=== PATIENT | male | born 1965 | race African-American/Black ===

== ENCOUNTER 2021-03-20 18:23 | Inpatient (IN) | payer MEDICAID ==
[~2021-03-20] VITALS: Ht 175.3 cm; Wt 65.0 kg
[2021-03-20] MEDS ORDERED: HYDROcodone/acetaminophen 10/325mg tab PO ONE (19:10)
[2021-03-20] MEDS ORDERED: METO-395 PO (19:14)
[2021-03-20] MEDS ORDERED: CLOP75TA15 PO (19:14)
[2021-03-20] MEDS ORDERED: ATOR40TA PO (19:15)
[2021-03-20 19:58] LABS: ALANINE AMINOTRANSFERASE 17 U/L (12-78); ALBUMIN/GLOBULIN RATIO 1.1 (1.1-1.5); ALKALINE PHOSPHATASE 69 IU/L (46-116); ANION GAP 14 (8-16); ASPARTATE AMINO TRANSFERASE 18 U/L (10-37); BILIRUBIN,TOTAL 0.8 MG/DL (0.1-1.0); BLOOD UREA NITROGEN 12 MG/DL (7-18); BUN/CREATININE RATIO 13.3 (5.4-32.0); CALCIUM 8.6 MG/DL (8.5-10.1); CHLORIDE 106 MMOL/L (99-107); GLUCOSE 99 MG/DL (70-104); POTASSIUM 4.2 MMOL/L (3.5-5.1); SODIUM 141 MMOL/L (135-145); TOTAL CARBON DIOXIDE 21.2 MMOL/L (24-32); TOTAL PROTEIN 7.7 G/DL (6.4-8.2); eGFR 88 ML/MIN
[2021-03-20 20:05] LABS: ETHANOL 0.099 GM/DL (0.0-0.010); TROPONIN I < 0.04 NG/ML (0.0-0.05)
[2021-03-20 20:23] LABS: BASOPHILS # (AUTO) 0.1 X10'3 (0-0.2); BASOPHILS % (AUTO) 1.2 % (0-1); EOSINOPHILS % (AUTO) 0.1 % (0-6); HEMATOCRIT 42.5 % (42.0-52.0); HEMOGLOBIN 14.3 g/dl (14.0-17.9); LYMPHOCYTES # (AUTO) 1.1 X10'3 (1.1-4.8); LYMPHOCYTES % (AUTO) 20.7 % (21-51); MEAN CORPUSCULAR HEMOGLOBIN 30.1 PG (27.0-31.0); MEAN CORPUSCULAR HGB CONC 33.6 g/dL (33.0-36.5); MEAN CORPUSCULAR VOLUME 89.7 FL (78-98); MEAN PLATELET VOLUME 7.2 FL (7.4-10.4); MONOCYTES # (AUTO) 0.4 X10'3 (0-0.9); MONOCYTES % (AUTO) 7.2 % (2-12); NEUTROPHILS # (AUTO) 3.7 X10'3 (1.8-7.7); NEUTROPHILS % (AUTO) 70.8 % (42-75); PLATELET COUNT 277 X10'3 (140-440); RED BLOOD COUNT 4.74 X10'6 (4.70-6.10); RED CELL DISTRIBUTION WIDTH 14.6 % (11.5-14.5); WHITE BLOOD COUNT 5.2 X10'3 (4.5-11.0)
[2021-03-20] MEDS ORDERED: temazepam 15mg capsule PO PRN (21:00)
[2021-03-20] MEDS ORDERED: acetaminophen 325mg tablet PO PRN ×2 (21:15)
[2021-03-20] MEDS ORDERED: acetaminophen 650mg rectal suppository RC PRN (21:15)
[2021-03-20] MEDS ORDERED: bisacodyl 10mg suppository rectal RC PRN (21:15)
[2021-03-20] MEDS ORDERED: diphenhydrAMINE 25mg capsule PO PRN (21:15)
[2021-03-20] MEDS ORDERED: HYDROmorphone inj. 0.5 MG/0.5 ML DISP.SYRIN IV PRN (21:15)
[2021-03-20] MEDS ORDERED: ondansetron/PF 4mg/2ml inj IV PRN (21:15)
[2021-03-20] MEDS ORDERED: morphine 2 MG/ML inj. syringe IV PRN (21:15)
[2021-03-20] MEDS ORDERED: mag hydrox/Alum hydrox/simeth 30ml oral suspension PO PRN (21:15)
[2021-03-20] MEDS ORDERED: diphenhydrAMINE 50 mg/ml inj IV PRN (21:15)
[2021-03-20 21:48] LABS: HEMOGLOBIN A1C 5.8 % (4.5-6.2)
[2021-03-20 22:04] LABS: D-DIMER 0.48 MG/L FEU (0-0.50)
--- NOTE | 2021-03-20 22:26 | NUR ---
Pt is refusing to go to CT unless he gets pain meds. I talked to his nurse, only asprin is ordered for pain.
[2021-03-20 22:27] LABS: CREATINE KINASE 182 U/L (39-308); LIPASE < 50 U/L (73-393); MAGNESIUM 1.9 MG/DL (1.5-2.4); PHOSPHORUS 4.9 MG/DL (2.3-4.5)
[2021-03-20] MEDS: morphine 2 MG/ML inj. syringe IV PRN (22:28)
--- NOTE | 2021-03-20 22:42 | NUR ---
PT. TO CT
--- NOTE | 2021-03-20 22:57 | NUR ---
PT BACK FROM CT, PER SHOT CORE DRILL OPERATOR PT WAS DIFFICULT TO SCAN, INITIALLY REFUSED TO LAY SUPINE FOR EXAM, REQUESTED SHE LOOK AT HIS INJURED LEG, WHEN SHE WAS UNABLE TO SEE THE DIFFERENCE HE MOVED ONTO HIS BACK AND LAID FLAT WITHOUT ISSUE.
[2021-03-20] MEDS: dextrose 5%-1/2 normal saline 1,000 ML IV SCH (23:50)
--- NOTE | 2021-03-21 00:30 | NUR ---
PT REFUSES 6HR EKG, STATES HE IS TOO COLD, TELLS THIS NURSE TO "GET ME A CELL PHONE SILVERING APPLICATOR" RN INFORMES PT THERE IS NOT ONE AVAILABLE FOR HIS TYPE OF PHONE "THEN TAKE ME TO MY ROOM, I WANT A TV" PT EDUCATED ON ROOM SITUATION, "THEN GET OUT". RN LEFT ROOM NOTIFIED ROCHELLE PLATT WHO WILL ASSIST WITH CARE.
[2021-03-21 01:37] LABS: BASOPHILS # (AUTO) 0.1 X10'3 (0-0.2); BASOPHILS % (AUTO) 1.2 % (0-1); EOSINOPHILS % (AUTO) 0.7 % (0-6); HEMATOCRIT 37.2 % (42.0-52.0); HEMOGLOBIN 12.9 g/dl (14.0-17.9); LYMPHOCYTES # (AUTO) 1.5 X10'3 (1.1-4.8); LYMPHOCYTES % (AUTO) 25.8 % (21-51); MEAN CORPUSCULAR HEMOGLOBIN 30.6 PG (27.0-31.0); MEAN CORPUSCULAR HGB CONC 34.7 g/dL (33.0-36.5); MEAN CORPUSCULAR VOLUME 88.2 FL (78-98); MEAN PLATELET VOLUME 7.1 FL (7.4-10.4); MONOCYTES # (AUTO) 0.5 X10'3 (0-0.9); MONOCYTES % (AUTO) 9.4 % (2-12); NEUTROPHILS # (AUTO) 3.7 X10'3 (1.8-7.7); NEUTROPHILS % (AUTO) 62.9 % (42-75); PLATELET COUNT 264 X10'3 (140-440); RED BLOOD COUNT 4.22 X10'6 (4.70-6.10); RED CELL DISTRIBUTION WIDTH 14.4 % (11.5-14.5); WHITE BLOOD COUNT 5.8 X10'3 (4.5-11.0)
[2021-03-21 01:46] LABS: ALANINE AMINOTRANSFERASE 20 U/L (12-78); ALBUMIN 3.7 G/DL (3.4-5.0); ALBUMIN/GLOBULIN RATIO 1.1 (1.1-1.5); ALKALINE PHOSPHATASE 60 IU/L (46-116); ANION GAP 12 (8-16); ASPARTATE AMINO TRANSFERASE 25 U/L (10-37); BILIRUBIN,TOTAL 0.6 MG/DL (0.1-1.0); BLOOD UREA NITROGEN 13 MG/DL (7-18); CALCIUM 8.1 MG/DL (8.5-10.1); CHLORIDE 107 MMOL/L (99-107); CREATININE 0.81 MG/DL (0.60-1.10); GLUCOSE 99 MG/DL (70-104); POTASSIUM 3.9 MMOL/L (3.5-5.1); SODIUM 143 MMOL/L (135-145); TOTAL CARBON DIOXIDE 24.4 MMOL/L (24-32); TOTAL PROTEIN 7.1 G/DL (6.4-8.2); eGFR > 90 ML/MIN
[2021-03-21 01:49] LABS: CHOL/HDL RATIO 2.2 (0.00-4.99); CHOLESTEROL 139 MG/DL (0-200); HDL CHOLESTEROL 63 MG/DL (35-60); LDL CHOLESTEROL 59 MG/DL (50-100); TRIGLYCERIDES 94 MG/DL (20-135)
[2021-03-21] MEDS: morphine 2 MG/ML inj. syringe IV PRN ×5 (03:10→22:47)
[2021-03-21] MEDS: dextrose 5%-1/2 normal saline 1,000 ML IV SCH ×2 (07:15→18:02)
[2021-03-21] MEDS: metoprolol succinate 25mg (24-HOUR) SR. Tablet PO SCH ×2 (08:00→08:41)
[2021-03-21] MEDS ORDERED: lisinopril 10 MG tablet PO SCH (08:00)
[2021-03-21] MEDS: aspirin 325mg tablet, delayed-release (Ecotrin) PO SCH (08:38)
[2021-03-21] MEDS: atorvastatin 20mg tablet PO SCH (08:38)
[2021-03-21] MEDS: heparin, porcine 5000 units/ml vial SQ SCH ×2 (08:39→20:56)
[2021-03-21] MEDS: clopidogrel 75mg tablet PO SCH (08:42)
[2021-03-21] MEDS: pantoprazole 40mg Tablet.DR PO SCH (08:43)
[2021-03-21] MEDS: docusate sod 100mg capsule PO SCH ×2 (08:43→20:56)
[2021-03-21 09:50] VITALS: BP 153/77
--- NOTE | 2021-03-21 09:50 | NUR ---
Pt arrived from ED, A&Ox4. BLL, SRx2, CL within reach, non skid socks on. Tele monitor on, first set of vitals complete, mrsa collected. Dr Quiles at bedside.
[2021-03-21] MEDS ORDERED: nitroGLYCERIN 0.4mg SUBLingual tab SL PRN (10:05)
[2021-03-21] MEDS ORDERED: regadenoson 0.4mg/5ml syringe IV ONE (10:05)
[2021-03-21] MEDS ORDERED: metoprolol tartrate 1mg/ml inj IV PRN (10:05)
[2021-03-21] MEDS ORDERED: aminophylline 250mg/10ml inj. IV PRN (10:05)
[2021-03-21 11:00] VITALS: BP 132/80
[2021-03-21] MEDS ORDERED: LISI20TA28 PO (11:11)
[2021-03-21] MEDS ORDERED: lisinopril 10 MG tablet PO ONE (11:20)
--- NOTE | 2021-03-21 12:14 | NUR ---
Pt c/o waiting for an hour for pain medication. I went into pts room and informed him I was having to see another pt and I will look into what pain medication I can prescribe him. Per md orders, I am to administer PO pain meds prior to administering IV meds if PO was ineffective. I went back into pts room after attending to another pts needs and offered him a [place] 10/325 PO because pt said his pain was a 10. Pt refused to take PO, I explained I have to administer PO meds first. He didn't care, continued to raise his voice at me, and said "I didn't come in here to get high, norco doesn't work for me, I want morphine". Once again I explained I can give a PO med, and if it doesn't work, then I can give him morphine. He then told me he doesn't want me to be his nurse, and he wants to talk to my medical billing supervisor. I informed LC Vickesr Charge. She will talk to him.
[2021-03-21 15:00] VITALS: BP 131/68
[2021-03-21 18:00] VITALS: BP 105/64
--- NOTE | 2021-03-21 18:37 | NUR ---
Problems reprioritized. Patient report given, questions answered & plan of care reviewed with LC Calvillo. Pt sitting up in bed watching tv comfortably. No signs of distress noted. All pt needs met at this time.
--- NOTE | 2021-03-21 18:43 | NUR ---
Patient in room PCU 3024. I have received report from Belkis PLATT and had the opportunity to ask questions and assume patient care. Pt had finished dinner and was laying in bed watching tv. No signs of distress, will continue to monitor.
[2021-03-21] MEDS: HYDROcodone/acetaminophen 10/325mg tab PO PRN (21:02)
[2021-03-21 22:00] VITALS: BP 121/68
[2021-03-22] VITALS (18 sets, daily range): BP systolic 97–133; BP diastolic 51–75
[2021-03-22] MEDS: dextrose 5%-1/2 normal saline 1,000 ML IV SCH ×3 (03:31→21:37)
[2021-03-22] MEDS: morphine 2 MG/ML inj. syringe IV PRN ×4 (04:13→20:55)
[2021-03-22 06:16] LABS: BASOPHILS % (AUTO) 0.8 % (0-1); EOSINOPHILS # (AUTO) 0.1 X10'3 (0-0.9); EOSINOPHILS % (AUTO) 1.8 % (0-6); HEMATOCRIT 30.4 % (42.0-52.0); HEMOGLOBIN 10.6 g/dl (14.0-17.9); LYMPHOCYTES # (AUTO) 1.1 X10'3 (1.1-4.8); LYMPHOCYTES % (AUTO) 23.1 % (21-51); MEAN CORPUSCULAR HEMOGLOBIN 30.8 PG (27.0-31.0); MEAN CORPUSCULAR HGB CONC 34.8 g/dL (33.0-36.5); MEAN CORPUSCULAR VOLUME 88.4 FL (78-98); MEAN PLATELET VOLUME 7.3 FL (7.4-10.4); MONOCYTES # (AUTO) 0.6 X10'3 (0-0.9); MONOCYTES % (AUTO) 13.5 % (2-12); NEUTROPHILS # (AUTO) 2.8 X10'3 (1.8-7.7); NEUTROPHILS % (AUTO) 60.8 % (42-75); PLATELET COUNT 242 X10'3 (140-440); RED BLOOD COUNT 3.44 X10'6 (4.70-6.10); RED CELL DISTRIBUTION WIDTH 14.2 % (11.5-14.5); WHITE BLOOD COUNT 4.6 X10'3 (4.5-11.0)
--- NOTE | 2021-03-22 06:23 | NUR ---
Problems reprioritized. Patient report given, questions answered & plan of care reviewed with Belkis PLATT and Brea PLATT.
[2021-03-22] MEDS: HYDROcodone/acetaminophen 10/325mg tab PO PRN ×3 (06:30→19:31)
--- NOTE | 2021-03-22 06:33 | NUR ---
Patient in room PCU 3024. I have received report from LC Calvillo and had the opportunity to ask questions and assume patient care.
--- NOTE | 2021-03-22 06:33 | NUR ---
Patient in room PCU 3024. I have received report from Rachel Calvillo and had the opportunity to ask questions and assume patient care.
[2021-03-22 06:44] LABS: ALANINE AMINOTRANSFERASE 18 U/L (12-78); ALKALINE PHOSPHATASE 57 IU/L (46-116); ANION GAP 8 (8-16); ASPARTATE AMINO TRANSFERASE 20 U/L (10-37); BILIRUBIN,TOTAL 0.4 MG/DL (0.1-1.0); BLOOD UREA NITROGEN 17 MG/DL (7-18); BUN/CREATININE RATIO 24.3 (5.4-32.0); CALCIUM 7.8 MG/DL (8.5-10.1); CHLORIDE 105 MMOL/L (99-107); GLUCOSE 102 MG/DL (70-104); POTASSIUM 3.7 MMOL/L (3.5-5.1); SODIUM 139 MMOL/L (135-145); TOTAL CARBON DIOXIDE 25.7 MMOL/L (24-32); TOTAL PROTEIN 5.9 G/DL (6.4-8.2); eGFR > 90 ML/MIN
[2021-03-22] MEDS: docusate sod 100mg capsule PO SCH ×2 (07:37→20:54)
[2021-03-22] MEDS: atorvastatin 20mg tablet PO SCH (07:37)
[2021-03-22] MEDS: pantoprazole 40mg Tablet.DR PO SCH (07:37)
--- NOTE | 2021-03-22 09:48 | NUR ---
Paged Dr Quiles PAGER ID: [phone] MESSAGE: Analia Mukesh Hicks U [id number] FYI Pt refusing to go to [facility] scan, he claims he's in too much pain. Thanks Belkis [phone]
[2021-03-22] MEDS ORDERED: iohexol 300mg/ml 100ml inj. ONE (13:08)
[2021-03-22] MEDS: lisinopril 20mg tablet PO SCH (13:29)
[2021-03-22] MEDS: clopidogrel 75mg tablet PO SCH (13:31)
[2021-03-22] MEDS: aspirin 325mg tablet, delayed-release (Ecotrin) PO SCH (13:31)
[2021-03-22] MEDS: heparin, porcine 5000 units/ml vial SQ SCH ×2 (13:32→20:54)
--- NOTE | 2021-03-22 15:52 | NUR ---
Paged Dr Quiles PAGER ID: [phone] MESSAGE: Mukesh Webber [id number] FYI Pt was given lunch, NPO sign was up. Dr Rosen unable to cath today. Thanks Belkis
--- NOTE | 2021-03-22 18:23 | NUR ---
Problems reprioritized. Patient report given, questions answered & plan of care reviewed with LC Leiva. Pt sitting up in bed eating dinner independently. All pt needs met at change of shift.
--- NOTE | 2021-03-22 18:41 | NUR ---
Patient in room PCU 3024. I have received report from Belkis PLATT and had the opportunity to ask questions and assume patient care.
[2021-03-23] MEDS: HYDROcodone/acetaminophen 10/325mg tab PO PRN ×5 (00:20→20:09)
[2021-03-23] MEDS: morphine 2 MG/ML inj. syringe IV PRN ×5 (01:55→23:08)
[2021-03-23 02:00] VITALS: BP 112/71
--- NOTE | 2021-03-23 06:36 | NUR ---
Problems reprioritized. Patient report given, questions answered & plan of care reviewed with Tayler PLATT.
--- NOTE | 2021-03-23 07:23 | NUR ---
notified. PAGER ID: [phone] MESSAGE: Re: Jordan Hicks. [id number]. Do you want to hold the clopidegrol, due to the CT results of potential growing hematoma? pt refused labs. Attempting to get them. thanks. Tayler. [phone].
[2021-03-23] MEDS: heparin, porcine 5000 units/ml vial SQ SCH ×2 (08:00→20:10)
[2021-03-23] MEDS: clopidogrel 75mg tablet PO SCH (08:00)
[2021-03-23] MEDS: aspirin 325mg tablet, delayed-release (Ecotrin) PO SCH (08:04)
[2021-03-23] MEDS: metoprolol succinate 25mg (24-HOUR) SR. Tablet PO SCH (08:04)
[2021-03-23] MEDS: atorvastatin 20mg tablet PO SCH (08:04)
[2021-03-23] MEDS: lisinopril 20mg tablet PO SCH (08:10)
[2021-03-23] MEDS: pantoprazole 40mg Tablet.DR PO SCH (08:12)
[2021-03-23] MEDS: docusate sod 100mg capsule PO SCH ×2 (08:12→20:10)
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
--- NOTE | 2021-03-23 08:31 | NUR ---
CLARIFICATION OF ABOVE PRIOR NOTE. DR NEWTON REQUESTED I COME WITH HER INTO PT ROOM. PT WAS STATING DURING HIS TIRADE THAT HE WANTED TO "SWITCH" DOCTORS
--- NOTE | 2021-03-23 08:45 | NUR ---
Dr. Quiles at bedside. Patient continously interupting and argumenative with nursing staff. Consistently, saying "I do not want you as my DR. I do not care about you. I want another doctor. You did not do anything for me yesterday." Attempted to educated patient upon plan of care but patient said "I dont want to hear it. You'll get in trouble if you give me wrong information. You could get sued man. Quit trying to tell me what's going on."
[2021-03-23] MEDS: dextrose 5%-1/2 normal saline 1,000 ML IV SCH ×2 (10:33→20:11)
[2021-03-23 10:34] LABS: BASOPHILS % (AUTO) 0.9 % (0-1); EOSINOPHILS # (AUTO) 0.1 X10'3 (0-0.9); EOSINOPHILS % (AUTO) 1.4 % (0-6); HEMATOCRIT 31.8 % (42.0-52.0); HEMOGLOBIN 10.8 g/dl (14.0-17.9); LYMPHOCYTES # (AUTO) 0.8 X10'3 (1.1-4.8); LYMPHOCYTES % (AUTO) 18.3 % (21-51); MEAN CORPUSCULAR HEMOGLOBIN 30.2 PG (27.0-31.0); MEAN CORPUSCULAR VOLUME 88.9 FL (78-98); MEAN PLATELET VOLUME 7.3 FL (7.4-10.4); MONOCYTES # (AUTO) 0.5 X10'3 (0-0.9); MONOCYTES % (AUTO) 10.7 % (2-12); NEUTROPHILS # (AUTO) 3.1 X10'3 (1.8-7.7); NEUTROPHILS % (AUTO) 68.7 % (42-75); PLATELET COUNT 241 X10'3 (140-440); RED BLOOD COUNT 3.58 X10'6 (4.70-6.10); RED CELL DISTRIBUTION WIDTH 14.2 % (11.5-14.5); WHITE BLOOD COUNT 4.6 X10'3 (4.5-11.0)
[2021-03-23 10:40] LABS: ALANINE AMINOTRANSFERASE 13 U/L (12-78); ALBUMIN 3.1 G/DL (3.4-5.0); ALBUMIN/GLOBULIN RATIO 0.9 (1.1-1.5); ALKALINE PHOSPHATASE 54 IU/L (46-116); ANION GAP 9 (8-16); ASPARTATE AMINO TRANSFERASE 17 U/L (10-37); BILIRUBIN,TOTAL 0.3 MG/DL (0.1-1.0); BLOOD UREA NITROGEN 15 MG/DL (7-18); BUN/CREATININE RATIO 21.1 (5.4-32.0); CALCIUM 8.3 MG/DL (8.5-10.1); CHLORIDE 107 MMOL/L (99-107); CREATININE 0.71 MG/DL (0.60-1.10); GLUCOSE 116 MG/DL (70-104); SODIUM 141 MMOL/L (135-145); TOTAL CARBON DIOXIDE 25.4 MMOL/L (24-32); TOTAL PROTEIN 6.6 G/DL (6.4-8.2); eGFR > 90 ML/MIN
[2021-03-23 11:00] VITALS: BP 121/63
[2021-03-23 15:00] VITALS: BP 103/63
--- NOTE | 2021-03-23 16:33 | NUR ---
notified. PAGER ID: [phone] MESSAGE: Re; Jordan Hicks. [id number]. Do you want to resume patient's anti-coagulation tonight? Vascular US resulted. Thanks. gloria. [phone]. Addendum: 03/23/21 at 1640 by Gloria Rogers RN Dr. Quiles notified. She would like blood thinners to be held tonight, in case jose would like to take patient for surgery tonight/tomorrow.
--- NOTE | 2021-03-23 18:13 | NUR ---
Problems reprioritized. Patient report given, questions answered & plan of care reviewed with Lola RN.
[2021-03-23 18:30] VITALS: BP 113/52
[2021-03-23 23:00] VITALS: BP 94/54
[2021-03-24] MEDS: morphine 2 MG/ML inj. syringe IV PRN ×4 (03:14→21:27)
[2021-03-24 03:30] VITALS: BP 108/59
[2021-03-24 06:00] VITALS: BP 113/58
[2021-03-24] MEDS: dextrose 5%-1/2 normal saline 1,000 ML IV SCH ×3 (06:16→21:27)
[2021-03-24] MEDS: HYDROcodone/acetaminophen 10/325mg tab PO PRN ×2 (06:20→19:26)
[2021-03-24] MEDS: metoprolol succinate 25mg (24-HOUR) SR. Tablet PO SCH (08:00)
[2021-03-24] MEDS: heparin, porcine 5000 units/ml vial SQ SCH ×2 (08:31→19:24)
[2021-03-24] MEDS: lisinopril 20mg tablet PO SCH (08:31)
[2021-03-24] MEDS: pantoprazole 40mg Tablet.DR PO SCH (08:31)
[2021-03-24] MEDS: aspirin 325mg tablet, delayed-release (Ecotrin) PO SCH (08:31)
[2021-03-24] MEDS: atorvastatin 20mg tablet PO SCH (08:31)
[2021-03-24 08:41] LABS: ALANINE AMINOTRANSFERASE 18 U/L (12-78); ALBUMIN 2.9 G/DL (3.4-5.0); ALBUMIN/GLOBULIN RATIO 0.9 (1.1-1.5); ALKALINE PHOSPHATASE 62 IU/L (46-116); ANION GAP 6 (8-16); ASPARTATE AMINO TRANSFERASE 17 U/L (10-37); BILIRUBIN,TOTAL 0.3 MG/DL (0.1-1.0); BLOOD UREA NITROGEN 13 MG/DL (7-18); BUN/CREATININE RATIO 19.1 (5.4-32.0); CALCIUM 7.9 MG/DL (8.5-10.1); CHLORIDE 107 MMOL/L (99-107); CREATININE 0.68 MG/DL (0.60-1.10); GLUCOSE 91 MG/DL (70-104); POTASSIUM 3.9 MMOL/L (3.5-5.1); SODIUM 139 MMOL/L (135-145); TOTAL CARBON DIOXIDE 26.2 MMOL/L (24-32); TOTAL PROTEIN 6.2 G/DL (6.4-8.2); eGFR > 90 ML/MIN
[2021-03-24] MEDS: docusate sod 100mg capsule PO SCH ×2 (08:41→19:24)
[2021-03-24 08:46] LABS: EOSINOPHILS # (AUTO) 0.1 X10'3 (0-0.9); EOSINOPHILS % (AUTO) 3.5 % (0-6); HEMATOCRIT 30.1 % (42.0-52.0); HEMOGLOBIN 10.4 g/dl (14.0-17.9); LYMPHOCYTES # (AUTO) 1.1 X10'3 (1.1-4.8); LYMPHOCYTES % (AUTO) 30.6 % (21-51); MEAN CORPUSCULAR HEMOGLOBIN 30.4 PG (27.0-31.0); MEAN CORPUSCULAR HGB CONC 34.7 g/dL (33.0-36.5); MEAN CORPUSCULAR VOLUME 87.6 FL (78-98); MEAN PLATELET VOLUME 7.7 FL (7.4-10.4); MONOCYTES # (AUTO) 0.4 X10'3 (0-0.9); MONOCYTES % (AUTO) 11.9 % (2-12); NEUTROPHILS # (AUTO) 1.9 X10'3 (1.8-7.7); PLATELET COUNT 231 X10'3 (140-440); RED BLOOD COUNT 3.43 X10'6 (4.70-6.10); WHITE BLOOD COUNT 3.6 X10'3 (4.5-11.0)
[2021-03-24 11:00] VITALS: BP 121/57
[2021-03-24] MEDS ORDERED: methylnaltrexone br 12mg/0.6ml inj***SubQ only SQ PRN (14:55)
[2021-03-24 15:00] VITALS: BP 96/60
[2021-03-24 18:00] VITALS: BP 100/50
--- NOTE | 2021-03-24 18:32 | NUR ---
Problems reprioritized. Patient report given, questions answered & plan of care reviewed with LC Perkins.
--- NOTE | 2021-03-24 18:44 | NUR ---
Patient in room PCU 3024. I have received report from LC Lester and had the opportunity to ask questions and assume patient care.
[2021-03-24 22:00] VITALS: BP 136/66
[2021-03-25] VITALS (10 sets, daily range): BP systolic 105–154; BP diastolic 62–81
[2021-03-25] MEDS: morphine 2 MG/ML inj. syringe IV PRN ×2 (04:43→12:10)
--- NOTE | 2021-03-25 06:20 | NUR ---
Patient in room PCU 3024. I have received report from Maddie Ramos and had the opportunity to ask questions and assume patient care.
--- NOTE | 2021-03-25 06:40 | NUR ---
Problems reprioritized. Patient bedside report given, questions answered & plan of care reviewed with LC Novak.
[2021-03-25 07:54] LABS: BASOPHILS % (AUTO) 1.2 % (0-1); EOSINOPHILS # (AUTO) 0.1 X10'3 (0-0.9); EOSINOPHILS % (AUTO) 3.7 % (0-6); HEMATOCRIT 31.2 % (42.0-52.0); HEMOGLOBIN 10.6 g/dl (14.0-17.9); LYMPHOCYTES # (AUTO) 0.9 X10'3 (1.1-4.8); LYMPHOCYTES % (AUTO) 26.2 % (21-51); MEAN CORPUSCULAR HEMOGLOBIN 30.2 PG (27.0-31.0); MEAN CORPUSCULAR VOLUME 88.8 FL (78-98); MEAN PLATELET VOLUME 7.5 FL (7.4-10.4); MONOCYTES # (AUTO) 0.4 X10'3 (0-0.9); MONOCYTES % (AUTO) 10.7 % (2-12); NEUTROPHILS # (AUTO) 2.1 X10'3 (1.8-7.7); NEUTROPHILS % (AUTO) 58.2 % (42-75); PLATELET COUNT 253 X10'3 (140-440); RED BLOOD COUNT 3.51 X10'6 (4.70-6.10); WHITE BLOOD COUNT 3.5 X10'3 (4.5-11.0)
[2021-03-25] MEDS: docusate sod 100mg capsule PO SCH ×2 (08:08→21:28)
[2021-03-25] MEDS: aspirin 325mg tablet, delayed-release (Ecotrin) PO SCH (08:08)
[2021-03-25] MEDS: metoprolol succinate 25mg (24-HOUR) SR. Tablet PO SCH (08:08)
[2021-03-25] MEDS: lisinopril 20mg tablet PO SCH (08:08)
[2021-03-25] MEDS: atorvastatin 20mg tablet PO SCH (08:09)
[2021-03-25] MEDS: pantoprazole 40mg Tablet.DR PO SCH (08:09)
[2021-03-25] MEDS: heparin, porcine 5000 units/ml vial SQ SCH ×2 (08:09→21:29)
[2021-03-25] MEDS: clopidogrel 75mg tablet PO SCH (08:09)
[2021-03-25 08:16] LABS: ALANINE AMINOTRANSFERASE 16 U/L (12-78); ALBUMIN 2.8 G/DL (3.4-5.0); ALBUMIN/GLOBULIN RATIO 0.8 (1.1-1.5); ALKALINE PHOSPHATASE 59 IU/L (46-116); ANION GAP 10 (8-16); ASPARTATE AMINO TRANSFERASE 16 U/L (10-37); BILIRUBIN,TOTAL 0.4 MG/DL (0.1-1.0); BLOOD UREA NITROGEN 13 MG/DL (7-18); BUN/CREATININE RATIO 18.1 (5.4-32.0); CALCIUM 7.8 MG/DL (8.5-10.1); CHLORIDE 109 MMOL/L (99-107); CREATININE 0.72 MG/DL (0.60-1.10); GLUCOSE 95 MG/DL (70-104); SODIUM 143 MMOL/L (135-145); TOTAL CARBON DIOXIDE 24.5 MMOL/L (24-32); TOTAL PROTEIN 6.1 G/DL (6.4-8.2); eGFR > 90 ML/MIN
--- NOTE | 2021-03-25 10:40 | NUR ---
Initial: Pt admitted w/ chest pain and now has RLE pain per EMR. Pt able to eat well, avg intake 100% of meals meeting needs, may refuse 1 every now and then. Pt noted to be noncooperative at times. No N/V/D reported. LBM 03/24, noted to be small though pt receiving routine colace. No nutritional diagnosis at this time, will continue to monitor. Rec: 1. Continue Regular diet as tolerated 2. Bowel care per rx 3. Scaled wt this admit Addendum: 03/25/21 at [address] Amended: Links added.
[2021-03-25] MEDS: magnesium hydroxide 30ml (MOM) UD suspension PO PRN (11:17)
[2021-03-25] MEDS: dextrose 5%-1/2 normal saline 1,000 ML IV SCH ×2 (11:17→21:29)
--- NOTE | 2021-03-25 12:05 | NUR ---
MD Ranjit Hernandez U ext [phone]. Pt kim mitchell refusing PRN norco 10's requesting Morphine IV. Order is to utilize PO first. Is it okay to utilize morhpine? Please advise.
[2021-03-25] MEDS ORDERED: LIDOcaine 1%/PF 5ML 10 MG/ML VIAL ONE ×3 (14:12→17:21)
[2021-03-25] MEDS ORDERED: fentaNYL/PF 50MCG/1 ML 2ML syringe ONE ×4 (14:12→17:02)
[2021-03-25] MEDS ORDERED: midazolam 1 mg/ML 2ml injection ONE ×4 (14:12→17:03)
[2021-03-25] MEDS ORDERED: iohexol 300mg/ml 100ml inj. ONE ×2 (14:13→17:10)
[2021-03-25] MEDS ORDERED: heparin 1,000 UNITS/NS 500ml 500 ML ONE (14:13)
[2021-03-25 14:55] LABS: PARTIAL THROMBOPLASTIN TIME 30 SECONDS (22-32)
--- NOTE | 2021-03-25 15:36 | NUR ---
Problems reprioritized. Patient report given, questions answered & plan of care reviewed with Zarina Ramos. Addendum: 03/25/21 at 1537 by Eugenio Jenkins RN Error Wrong patient.
--- NOTE | 2021-03-25 18:19 | NUR ---
Pt back on unit from procedure, patient has two punctures to his femoral arteries. and needs to lie flat for 2 hours, Pt refusing to lay flat spent 15minutes educating patient on severity of possible bleeding risks. Pt demanded pt turn bed and place in corner of room in order for pt to not attempt to get out of bed.
--- NOTE | 2021-03-25 18:22 | NUR ---
Problems reprioritized. Patient report given, questions answered & plan of care reviewed with Maddie Ramos.
--- NOTE | 2021-03-25 18:54 | NUR ---
Patient in room PCU 3024. I have received bedside report from LC Novak and had the opportunity to ask questions and assume patient care.
--- NOTE | 2021-03-25 18:54 | NUR ---
PAGER ID: [phone] MESSAGE: Dominic Hicks rm [id number] 55M Angio of bilat legs and CT of abd complete. Pt has Reg diet cancelled, can I reorder regular diet? Thank you Maddie PLATT PCU [id number]
--- NOTE | 2021-03-25 19:24 | NUR ---
Pt discharge instructions relayed and discussed w/pt. All paperwork given to pt. IV and tele box removed. Pt refused wheelchair and walked to the front door where his girlfriend was waiting to pick him up. Addendum: 03/26/21 at 0326 by Maddie Mata RN Wrong patient please disregard note.
[2021-03-25] MEDS: HYDROcodone/acetaminophen 10/325mg tab PO PRN (19:38)
--- NOTE | 2021-03-25 22:05 | NUR ---
PAGER ID: [phone] MESSAGE: Mukesh Hicks 55M rm [id number] Pt had angiograms to the pelvic and right lower extremity today. Admit w/R thigh swelling. Blood on the L fem bandage and a lump can be felt. Pressure held for 10 min will continue to monitor. Maddie [phone]
[2021-03-26] MEDS: morphine 2 MG/ML inj. syringe IV PRN ×4 (00:42→20:11)
[2021-03-26] MEDS: magnesium hydroxide 30ml (MOM) UD suspension PO PRN (04:49)
--- NOTE | 2021-03-26 06:27 | NUR ---
Patient in room PCU 3024. I have received report from Maddie PLATT and had the opportunity to ask questions and assume patient care. Patient resting in bed in no acute distress.
--- NOTE | 2021-03-26 06:44 | NUR ---
Problems reprioritized. Patient report given, questions answered & plan of care reviewed with LC Pulido.
[2021-03-26 07:00] VITALS: BP 112/69
[2021-03-26] MEDS: metoprolol succinate 25mg (24-HOUR) SR. Tablet PO SCH (08:00)
[2021-03-26] MEDS: dextrose 5%-1/2 normal saline 1,000 ML IV SCH ×2 (08:08→17:15)
[2021-03-26] MEDS: lisinopril 20mg tablet PO SCH (08:09)
[2021-03-26] MEDS: clopidogrel 75mg tablet PO SCH (08:10)
[2021-03-26] MEDS: aspirin 325mg tablet, delayed-release (Ecotrin) PO SCH (08:10)
[2021-03-26] MEDS: docusate sod 100mg capsule PO SCH ×2 (08:10→20:00)
[2021-03-26] MEDS: atorvastatin 20mg tablet PO SCH (08:10)
[2021-03-26] MEDS: pantoprazole 40mg Tablet.DR PO SCH (08:10)
[2021-03-26] MEDS: heparin, porcine 5000 units/ml vial SQ SCH (08:11)
[2021-03-26] MEDS: HYDROcodone/acetaminophen 5mg/325mg tablet PO PRN (08:21)
[2021-03-26 08:22] LABS: BASOPHILS % (AUTO) 0.8 % (0-1); EOSINOPHILS # (AUTO) 0.1 X10'3 (0-0.9); EOSINOPHILS % (AUTO) 2.2 % (0-6); HEMATOCRIT 28.1 % (42.0-52.0); HEMOGLOBIN 9.8 g/dl (14.0-17.9); LYMPHOCYTES # (AUTO) 0.9 X10'3 (1.1-4.8); LYMPHOCYTES % (AUTO) 19.5 % (21-51); MEAN CORPUSCULAR HEMOGLOBIN 30.3 PG (27.0-31.0); MEAN CORPUSCULAR HGB CONC 34.7 g/dL (33.0-36.5); MEAN CORPUSCULAR VOLUME 87.4 FL (78-98); MEAN PLATELET VOLUME 7.5 FL (7.4-10.4); MONOCYTES # (AUTO) 0.5 X10'3 (0-0.9); MONOCYTES % (AUTO) 10.5 % (2-12); NEUTROPHILS # (AUTO) 2.9 X10'3 (1.8-7.7); PLATELET COUNT 264 X10'3 (140-440); RED BLOOD COUNT 3.22 X10'6 (4.70-6.10); RED CELL DISTRIBUTION WIDTH 13.6 % (11.5-14.5); WHITE BLOOD COUNT 4.4 X10'3 (4.5-11.0)
[2021-03-26 08:35] LABS: ALANINE AMINOTRANSFERASE 18 U/L (12-78); ALBUMIN 2.8 G/DL (3.4-5.0); ALBUMIN/GLOBULIN RATIO 0.8 (1.1-1.5); ALKALINE PHOSPHATASE 54 IU/L (46-116); ANION GAP 9 (8-16); ASPARTATE AMINO TRANSFERASE 17 U/L (10-37); BILIRUBIN,TOTAL 0.4 MG/DL (0.1-1.0); BLOOD UREA NITROGEN 11 MG/DL (7-18); BUN/CREATININE RATIO 16.7 (5.4-32.0); CALCIUM 7.9 MG/DL (8.5-10.1); CHLORIDE 108 MMOL/L (99-107); CREATININE 0.66 MG/DL (0.60-1.10); GLUCOSE 89 MG/DL (70-104); POTASSIUM 3.9 MMOL/L (3.5-5.1); SODIUM 143 MMOL/L (135-145); TOTAL CARBON DIOXIDE 25.8 MMOL/L (24-32); TOTAL PROTEIN 6.1 G/DL (6.4-8.2); eGFR > 90 ML/MIN
[2021-03-26] MEDS: polyethylene glycol 3350 17gm powd pack PO PRN (09:38)
[2021-03-26 11:00] VITALS: BP 117/63
--- NOTE | 2021-03-26 12:56 | NUR ---
Patient given ice pack for thigh
[2021-03-26 15:00] VITALS: BP 133/63
[2021-03-26] MEDS: HYDROcodone/acetaminophen 10/325mg tab PO PRN ×2 (16:00→22:18)
--- NOTE | 2021-03-26 16:56 | NUR ---
patient received bed bath
[2021-03-26 18:00] VITALS: BP 126/70
--- NOTE | 2021-03-26 18:07 | NUR ---
Problems reprioritized. Patient report given, questions answered & plan of care reviewed with Belle PLATT. Patient laying in bed eating dinner. In no acute distress. Introduced to LEO PLATT.
[2021-03-26 22:00] VITALS: BP 137/71
[2021-03-27] MEDS: morphine 2 MG/ML inj. syringe IV PRN ×2 (00:35→08:19)
[2021-03-27] MEDS: dextrose 5%-1/2 normal saline 1,000 ML IV SCH ×2 (00:41→13:15)
[2021-03-27 02:00] VITALS: BP 157/72
[2021-03-27 06:08] LABS: BASOPHILS % (AUTO) 0.8 % (0-1); EOSINOPHILS # (AUTO) 0.1 X10'3 (0-0.9); EOSINOPHILS % (AUTO) 3.4 % (0-6); HEMATOCRIT 29.2 % (42.0-52.0); HEMOGLOBIN 10.2 g/dl (14.0-17.9); LYMPHOCYTES % (AUTO) 28.6 % (21-51); MEAN CORPUSCULAR HEMOGLOBIN 30.7 PG (27.0-31.0); MEAN CORPUSCULAR HGB CONC 34.8 g/dL (33.0-36.5); MEAN CORPUSCULAR VOLUME 88.3 FL (78-98); MEAN PLATELET VOLUME 7.3 FL (7.4-10.4); MONOCYTES # (AUTO) 0.5 X10'3 (0-0.9); MONOCYTES % (AUTO) 14.1 % (2-12); NEUTROPHILS # (AUTO) 1.9 X10'3 (1.8-7.7); NEUTROPHILS % (AUTO) 53.1 % (42-75); PLATELET COUNT 272 X10'3 (140-440); RED CELL DISTRIBUTION WIDTH 13.9 % (11.5-14.5); WHITE BLOOD COUNT 3.6 X10'3 (4.5-11.0)
[2021-03-27 06:12] LABS: ALANINE AMINOTRANSFERASE 20 U/L (12-78); ALBUMIN 2.9 G/DL (3.4-5.0); ALBUMIN/GLOBULIN RATIO 0.8 (1.1-1.5); ALKALINE PHOSPHATASE 62 IU/L (46-116); ANION GAP 6 (8-16); ASPARTATE AMINO TRANSFERASE 18 U/L (10-37); BILIRUBIN,TOTAL 0.4 MG/DL (0.1-1.0); BLOOD UREA NITROGEN 9 MG/DL (7-18); BUN/CREATININE RATIO 11.5 (5.4-32.0); CALCIUM 8.5 MG/DL (8.5-10.1); CHLORIDE 108 MMOL/L (99-107); CREATININE 0.78 MG/DL (0.60-1.10); GLUCOSE 84 MG/DL (70-104); POTASSIUM 4.2 MMOL/L (3.5-5.1); SODIUM 141 MMOL/L (135-145); TOTAL PROTEIN 6.4 G/DL (6.4-8.2); eGFR > 90 ML/MIN
--- NOTE | 2021-03-27 06:25 | NUR ---
Problems reprioritized. Patient report given, questions answered & plan of care reviewed with LC DEL RIO.
--- NOTE | 2021-03-27 06:57 | NUR ---
Patient in room PCU 3024. I have received report from Belle PLATT and had the opportunity to ask questions and assume patient care. Patient resting in bed in no acute distress. Needs met at this time.
[2021-03-27 07:00] VITALS: BP 123/71
[2021-03-27] MEDS: metoprolol succinate 25mg (24-HOUR) SR. Tablet PO SCH (08:00)
[2021-03-27] MEDS: docusate sod 100mg capsule PO SCH ×2 (08:16→20:00)
[2021-03-27] MEDS: pantoprazole 40mg Tablet.DR PO SCH (08:16)
[2021-03-27] MEDS: clopidogrel 75mg tablet PO SCH (08:16)
[2021-03-27] MEDS: atorvastatin 20mg tablet PO SCH (08:16)
[2021-03-27] MEDS: lisinopril 20mg tablet PO SCH (08:18)
--- NOTE | 2021-03-27 08:48 | NUR ---
Patient pulled out IV and is refusing to let me place PIV stating he is a hard stick. will page PICC RN
--- NOTE | 2021-03-27 08:53 | NUR ---
Page to PICC RN [id number] Kurt. Please place PIV. londono [phone]
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
--- NOTE | 2021-03-27 10:01 | NUR ---
Morphine was pulled this morning to admin. I pulled it up into syringe and the noticed patient IV had been pulled out. Patient refused attemp to place PIV stating no one ever gets it into his AC. PICC RN paged and morphine wasted. Will treat with PO med until I get IV access
[2021-03-27] MEDS: HYDROcodone/acetaminophen 10/325mg tab PO PRN (10:05)
[2021-03-27] MEDS ORDERED: HYDROmorphone 1 mg/ml syringe IV PRN (10:25)
[2021-03-27] MEDS ORDERED: LORazepam 2 mg/ml vial IV PRN (10:25)
[2021-03-27 11:00] VITALS: BP 160/84
[2021-03-27] MEDS: HYDROmorphone inj. 0.5 MG/0.5 ML DISP.SYRIN IV PRN ×3 (13:00→21:45)
[2021-03-27 15:00] VITALS: BP 111/77
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
--- NOTE | 2021-03-27 17:46 | NUR ---
Dr. Solano gave me verbal orders at bedside to repeat RLE CT now and in the morning to monitor the quad hemorrhage.
[2021-03-27 18:00] VITALS: BP 150/76
--- NOTE | 2021-03-27 18:00 | NUR ---
Patient in room PCU 3024. I have received report from Anjali PLATT and had the opportunity to ask questions and assume patient care.
--- NOTE | 2021-03-27 18:13 | NUR ---
Problems reprioritized. Patient report given, questions answered & plan of care reviewed with Elizabeth PLATT. Patient resting in bed in no acute distress.
--- NOTE | 2021-03-27 18:17 | NUR ---
Patient in room PCU 3024. I have received report from Anjali PLATT and had the opportunity to ask questions and assume patient care.
[2021-03-27 22:00] VITALS: BP 129/58
[2021-03-28] MEDS: dextrose 5%-1/2 normal saline 1,000 ML IV SCH ×3 (00:11→19:15)
[2021-03-28 02:00] VITALS: BP 114/56
[2021-03-28 02:41] LABS: BASOPHILS # (AUTO) 0.1 X10'3 (0-0.2); BASOPHILS % (AUTO) 1.2 % (0-1); EOSINOPHILS # (AUTO) 0.1 X10'3 (0-0.9); EOSINOPHILS % (AUTO) 3.2 % (0-6); HEMATOCRIT 28.6 % (42.0-52.0); HEMOGLOBIN 9.9 g/dl (14.0-17.9); LYMPHOCYTES # (AUTO) 1.2 X10'3 (1.1-4.8); LYMPHOCYTES % (AUTO) 27.4 % (21-51); MEAN CORPUSCULAR HEMOGLOBIN 30.2 PG (27.0-31.0); MEAN CORPUSCULAR HGB CONC 34.5 g/dL (33.0-36.5); MEAN CORPUSCULAR VOLUME 87.5 FL (78-98); MEAN PLATELET VOLUME 6.7 FL (7.4-10.4); MONOCYTES # (AUTO) 0.5 X10'3 (0-0.9); MONOCYTES % (AUTO) 12.6 % (2-12); NEUTROPHILS # (AUTO) 2.3 X10'3 (1.8-7.7); NEUTROPHILS % (AUTO) 55.6 % (42-75); PLATELET COUNT 291 X10'3 (140-440); RED BLOOD COUNT 3.27 X10'6 (4.70-6.10); RED CELL DISTRIBUTION WIDTH 13.6 % (11.5-14.5); WHITE BLOOD COUNT 4.2 X10'3 (4.5-11.0)
[2021-03-28 02:57] LABS: ALANINE AMINOTRANSFERASE 15 U/L (12-78); ALBUMIN 2.9 G/DL (3.4-5.0); ALBUMIN/GLOBULIN RATIO 0.8 (1.1-1.5); ALKALINE PHOSPHATASE 62 IU/L (46-116); ANION GAP 7 (8-16); ASPARTATE AMINO TRANSFERASE 19 U/L (10-37); BILIRUBIN,TOTAL 0.3 MG/DL (0.1-1.0); BLOOD UREA NITROGEN 13 MG/DL (7-18); BUN/CREATININE RATIO 17.3 (5.4-32.0); CALCIUM 8.5 MG/DL (8.5-10.1); CHLORIDE 105 MMOL/L (99-107); CREATININE 0.75 MG/DL (0.60-1.10); GLUCOSE 111 MG/DL (70-104); POTASSIUM 3.7 MMOL/L (3.5-5.1); SODIUM 141 MMOL/L (135-145); TOTAL CARBON DIOXIDE 28.6 MMOL/L (24-32); TOTAL PROTEIN 6.4 G/DL (6.4-8.2); eGFR > 90 ML/MIN
[2021-03-28 06:00] VITALS: BP 119/78
--- NOTE | 2021-03-28 06:20 | NUR ---
Patient in room PCU 3024. I have received report from Elizabeth PLATT and had the opportunity to ask questions and assume patient care.
--- NOTE | 2021-03-28 06:25 | NUR ---
Problems reprioritized. Patient report given, questions answered & plan of care reviewed with Juan PLATT.
--- NOTE | 2021-03-28 06:25 | NUR ---
Patient in room PCU 3024. I have received report from LC Cazares and had the opportunity to ask questions and assume patient care.
[2021-03-28] MEDS: lisinopril 20mg tablet PO SCH (07:42)
[2021-03-28] MEDS: docusate sod 100mg capsule PO SCH ×2 (07:42→20:00)
[2021-03-28] MEDS: pantoprazole 40mg Tablet.DR PO SCH (07:42)
[2021-03-28] MEDS: metoprolol succinate 25mg (24-HOUR) SR. Tablet PO SCH (07:42)
[2021-03-28] MEDS: atorvastatin 20mg tablet PO SCH (07:42)
[2021-03-28] MEDS: HYDROmorphone inj. 0.5 MG/0.5 ML DISP.SYRIN IV PRN ×3 (07:48→19:27)
[2021-03-28] MEDS: HYDROcodone/acetaminophen 10/325mg tab PO PRN (09:51)
[2021-03-28] MEDS ORDERED: iohexol 300mg/ml 100ml inj. ONE (13:40)
--- NOTE | 2021-03-28 14:14 | NUR ---
Patient in room PCU 3024. I have received report from Juan PLATT and had the opportunity to ask questions and assume patient care.
[2021-03-28 15:00] VITALS: BP 138/81
--- NOTE | 2021-03-28 16:13 | NUR ---
Page Sent promotional table spacer PAGER ID: [phone] MESSAGE: [id number] Kurt. Please call Ankita at [facility]. She has a critical for you . Please call [phone] . Anjali [phone]
[2021-03-28 18:00] VITALS: BP 157/77
--- NOTE | 2021-03-28 18:16 | NUR ---
PAGER ID: [phone] MESSAGE: Jordan Hicks room 3052X is inquiring if he can have his dinner tray? Jane ext [phone]
--- NOTE | 2021-03-28 18:49 | NUR ---
Problems reprioritized. Patient report given, questions answered & plan of care reviewed with Bhavana PLATT.
[2021-03-29 03:00] VITALS: BP 111/59
[2021-03-29] MEDS: HYDROmorphone inj. 0.5 MG/0.5 ML DISP.SYRIN IV PRN ×5 (03:32→21:11)
[2021-03-29] MEDS: dextrose 5%-1/2 normal saline 1,000 ML IV SCH ×2 (04:38→16:27)
[2021-03-29 06:00] VITALS: BP 139/68
[2021-03-29 06:02] LABS: BASOPHILS % (AUTO) 1.1 % (0-1); EOSINOPHILS # (AUTO) 0.1 X10'3 (0-0.9); EOSINOPHILS % (AUTO) 3.9 % (0-6); HEMATOCRIT 30.3 % (42.0-52.0); HEMOGLOBIN 10.6 g/dl (14.0-17.9); LYMPHOCYTES % (AUTO) 27.3 % (21-51); MEAN CORPUSCULAR HEMOGLOBIN 30.6 PG (27.0-31.0); MEAN CORPUSCULAR HGB CONC 34.9 g/dL (33.0-36.5); MEAN CORPUSCULAR VOLUME 87.6 FL (78-98); MEAN PLATELET VOLUME 6.9 FL (7.4-10.4); MONOCYTES # (AUTO) 0.5 X10'3 (0-0.9); MONOCYTES % (AUTO) 12.7 % (2-12); NEUTROPHILS # (AUTO) 2.1 X10'3 (1.8-7.7); PLATELET COUNT 346 X10'3 (140-440); RED BLOOD COUNT 3.47 X10'6 (4.70-6.10); RED CELL DISTRIBUTION WIDTH 13.9 % (11.5-14.5); WHITE BLOOD COUNT 3.8 X10'3 (4.5-11.0)
[2021-03-29 06:26] LABS: ALANINE AMINOTRANSFERASE 31 U/L (12-78); ALBUMIN 3.1 G/DL (3.4-5.0); ALBUMIN/GLOBULIN RATIO 0.8 (1.1-1.5); ALKALINE PHOSPHATASE 77 IU/L (46-116); ANION GAP 5 (8-16); ASPARTATE AMINO TRANSFERASE 25 U/L (10-37); BILIRUBIN,TOTAL 0.3 MG/DL (0.1-1.0); BLOOD UREA NITROGEN 15 MG/DL (7-18); BUN/CREATININE RATIO 19.2 (5.4-32.0); CALCIUM 8.6 MG/DL (8.5-10.1); CHLORIDE 107 MMOL/L (99-107); CREATININE 0.78 MG/DL (0.60-1.10); GLUCOSE 96 MG/DL (70-104); POTASSIUM 3.8 MMOL/L (3.5-5.1); SODIUM 139 MMOL/L (135-145); TOTAL PROTEIN 6.8 G/DL (6.4-8.2); eGFR > 90 ML/MIN
[2021-03-29] MEDS: pantoprazole 40mg Tablet.DR PO SCH (07:58)
[2021-03-29] MEDS: atorvastatin 20mg tablet PO SCH ×2 (07:59→08:06)
[2021-03-29] MEDS: docusate sod 100mg capsule PO SCH ×2 (07:59→20:09)
[2021-03-29] MEDS: metoprolol succinate 25mg (24-HOUR) SR. Tablet PO SCH (08:00)
[2021-03-29] MEDS: lisinopril 20mg tablet PO SCH (08:06)
[2021-03-29 11:00] VITALS: BP 150/69
--- NOTE | 2021-03-29 11:37 | NUR ---
Orders for daily circumferential measurements put in per Elissa Abad.
[2021-03-29 12:21] LABS: CREATINE KINASE 146 U/L (39-308)
[2021-03-29 15:00] VITALS: BP 119/72
--- NOTE | 2021-03-29 18:32 | NUR ---
Problems reprioritized. Patient report given Marily PLATT, questions answered & plan of care reviewed with .
[2021-03-29] MEDS: HYDROcodone/acetaminophen 10/325mg tab PO PRN (20:11)
[2021-03-29 22:00] VITALS: BP 137/64
[2021-03-30] MEDS: HYDROmorphone inj. 0.5 MG/0.5 ML DISP.SYRIN IV PRN ×5 (01:11→21:41)
[2021-03-30] MEDS: dextrose 5%-1/2 normal saline 1,000 ML IV SCH ×3 (01:24→21:15)
[2021-03-30 02:00] VITALS: BP 144/96
[2021-03-30 06:00] VITALS: BP 106/79
--- NOTE | 2021-03-30 06:16 | NUR ---
Problems reprioritized. Patient report given, questions answered & plan of care reviewed with Mariposa Ramos. Addendum: 03/30/21 at 0617 by Marily Brunner RN Amended: Links added.
[2021-03-30] MEDS: pantoprazole 40mg Tablet.DR PO SCH (07:47)
[2021-03-30] MEDS: atorvastatin 20mg tablet PO SCH (07:48)
[2021-03-30] MEDS: docusate sod 100mg capsule PO SCH ×2 (07:48→19:34)
[2021-03-30] MEDS: lisinopril 20mg tablet PO SCH (07:48)
[2021-03-30] MEDS: metoprolol succinate 25mg (24-HOUR) SR. Tablet PO SCH (08:00)
[2021-03-30 11:00] VITALS: BP 124/92
[2021-03-30 15:00] VITALS: BP 128/70
[2021-03-30] MEDS ORDERED: LIDOcaine 1% (10mg/ml)w/preservative injection 20ml MDV SQ ONE (16:45)
[2021-03-30 18:00] VITALS: BP 150/74
--- NOTE | 2021-03-30 18:50 | NUR ---
Problems reprioritized. Patient report given Prudence RN, questions answered & plan of care reviewed with .
--- NOTE | 2021-03-30 19:29 | NUR ---
Patient in room PCU 3024. I have received report from KAROL PLATT and had the opportunity to ask questions and assume patient care.
[2021-03-30] MEDS: HYDROcodone/acetaminophen 10/325mg tab PO PRN (19:34)
[2021-03-30] MEDS: magnesium hydroxide 30ml (MOM) UD suspension PO PRN (19:36)
[2021-03-30 22:00] VITALS: BP 140/85
[2021-03-31] MEDS: HYDROcodone/acetaminophen 10/325mg tab PO PRN ×5 (00:11→22:22)
[2021-03-31] MEDS: dextrose 5%-1/2 normal saline 1,000 ML IV SCH (00:28)
[2021-03-31 02:00] VITALS: BP 131/79
[2021-03-31] MEDS: HYDROmorphone inj. 0.5 MG/0.5 ML DISP.SYRIN IV PRN ×5 (02:06→20:43)
[2021-03-31 06:00] VITALS: BP 146/83
--- NOTE | 2021-03-31 06:38 | NUR ---
Problems reprioritized. Patient report given, questions answered & plan of care reviewed with SHELBY PLATT.
--- NOTE | 2021-03-31 06:58 | NUR ---
Patient in room PCU 3024. I have received report from Alivia PLATT and had the opportunity to ask questions and assume patient care.
[2021-03-31] MEDS: metoprolol succinate 25mg (24-HOUR) SR. Tablet PO SCH (08:00)
[2021-03-31] MEDS: atorvastatin 20mg tablet PO SCH (08:16)
[2021-03-31] MEDS: docusate sod 100mg capsule PO SCH (08:28)
[2021-03-31] MEDS: pantoprazole 40mg Tablet.DR PO SCH (08:28)
[2021-03-31] MEDS: lisinopril 20mg tablet PO SCH (08:28)
--- NOTE | 2021-03-31 09:00 | NUR ---
Dr. Huang and Nurse at bedside with patient in room. MD examined pt and attempted to assess pt. Pt upset with pain medications and c/o care. Labs ordered, Plavix 75mg daily starting now and fluids D5 1/2NS Discontinued. We will continue to monitor.
[2021-03-31 10:03] LABS: BASOPHILS # (AUTO) 0.1 X10'3 (0-0.2); BASOPHILS % (AUTO) 1.6 % (0-1); EOSINOPHILS # (AUTO) 0.2 X10'3 (0-0.9); EOSINOPHILS % (AUTO) 3.6 % (0-6); HEMATOCRIT 30.9 % (42.0-52.0); HEMOGLOBIN 10.8 g/dl (14.0-17.9); LYMPHOCYTES # (AUTO) 1.1 X10'3 (1.1-4.8); LYMPHOCYTES % (AUTO) 26.8 % (21-51); MEAN CORPUSCULAR HEMOGLOBIN 30.5 PG (27.0-31.0); MEAN CORPUSCULAR HGB CONC 34.8 g/dL (33.0-36.5); MEAN CORPUSCULAR VOLUME 87.5 FL (78-98); MEAN PLATELET VOLUME 6.9 FL (7.4-10.4); MONOCYTES # (AUTO) 0.4 X10'3 (0-0.9); MONOCYTES % (AUTO) 8.6 % (2-12); NEUTROPHILS # (AUTO) 2.5 X10'3 (1.8-7.7); NEUTROPHILS % (AUTO) 59.4 % (42-75); PLATELET COUNT 395 X10'3 (140-440); RED BLOOD COUNT 3.54 X10'6 (4.70-6.10); RED CELL DISTRIBUTION WIDTH 14.2 % (11.5-14.5); WHITE BLOOD COUNT 4.2 X10'3 (4.5-11.0)
[2021-03-31 10:15] LABS: ALANINE AMINOTRANSFERASE 32 U/L (12-78); ALBUMIN 3.3 G/DL (3.4-5.0); ALBUMIN/GLOBULIN RATIO 0.9 (1.1-1.5); ALKALINE PHOSPHATASE 70 IU/L (46-116); ANION GAP 10 (8-16); ASPARTATE AMINO TRANSFERASE 23 U/L (10-37); BILIRUBIN,TOTAL 0.3 MG/DL (0.1-1.0); BLOOD UREA NITROGEN 13 MG/DL (7-18); CALCIUM 8.2 MG/DL (8.5-10.1); CHLORIDE 107 MMOL/L (99-107); CREATININE 0.81 MG/DL (0.60-1.10); GLUCOSE 121 MG/DL (70-104); POTASSIUM 3.8 MMOL/L (3.5-5.1); SODIUM 142 MMOL/L (135-145); TOTAL CARBON DIOXIDE 25.4 MMOL/L (24-32); eGFR > 90 ML/MIN
--- NOTE | 2021-03-31 10:30 | NUR ---
asked by primary RN Belkis to admin Plavix, MOM and [place]
[2021-03-31] MEDS: clopidogrel 75mg tablet PO SCH (10:37)
[2021-03-31] MEDS: magnesium hydroxide 30ml (MOM) UD suspension PO PRN (10:37)
[2021-03-31 11:00] VITALS: BP 147/81
--- NOTE | 2021-03-31 12:46 | NUR ---
Nurse and Aide at bedside with patient. Measuring right thigh. 20.5 cm circumference. Pt stated same as yesterday. We will continue to monitor. Addendum: 03/31/21 at 1247 by Belkis Francis RN Amended: Links added.
[2021-03-31 18:00] VITALS: BP 147/70
--- NOTE | 2021-03-31 18:18 | NUR ---
Problems reprioritized. Patient report given, questions answered & plan of care reviewed with Isaura PLATT.
--- NOTE | 2021-03-31 18:40 | NUR ---
Patient in room PCU 3024. I have received report from SHELBY PLATT and had the opportunity to ask questions and assume patient care.
[2021-03-31 22:00] VITALS: BP 146/89
[2021-04-01] MEDS: HYDROmorphone inj. 0.5 MG/0.5 ML DISP.SYRIN IV PRN ×6 (00:32→21:36)
--- NOTE | 2021-04-01 02:08 | NUR ---
PATIENT REQUESTED PAIN MEDICATION AND INFORMED HIM (PER OUR AGREEMENT EARLY IN SHIFT) THAT I GIVEN HIM DILAUDID AT 0030. PATIENT IMMEDIATELY BECAME ANGRY AND BEGAN YELLING THAT I SHOULD NOT HAVE GIVEN IT TO HIM IF HE WASN'T AWAKE. I TRIED TO EXPLAIN WE HAD TALKED ABOUT THIS EARLIER AND THAT HE HAD WANTED ME TO GIVE HIM PAIN MEDS WHEN DUE. CHARGE NURSE WENT IN TO TALK TO PATIENT WHOM HE CONTINUED TO YELL AT LOUDLY. PATIENT HAS STATED "HE NO LONGER WANTS ME TO CARE FOR HIM" SO WILL DEFER TO OTHER STAFF MEMBERS
[2021-04-01] MEDS: HYDROcodone/acetaminophen 10/325mg tab PO PRN ×2 (03:37→11:59)
[2021-04-01 06:00] VITALS: BP 145/86
--- NOTE | 2021-04-01 06:40 | NUR ---
Problems reprioritized. Patient report given, questions answered & plan of care reviewed with KRYSTAL RN.
--- NOTE | 2021-04-01 07:14 | NUR ---
Patient in room PCU 3024. I have received report from Isaura Ramos and had the opportunity to ask questions and assume patient care.
[2021-04-01] MEDS: atorvastatin 20mg tablet PO SCH (08:20)
[2021-04-01] MEDS: pantoprazole 40mg Tablet.DR PO SCH (08:21)
[2021-04-01] MEDS: clopidogrel 75mg tablet PO SCH (08:21)
[2021-04-01] MEDS: lisinopril 20mg tablet PO SCH (08:21)
[2021-04-01] MEDS: metoprolol succinate 25mg (24-HOUR) SR. Tablet PO SCH (08:21)
[2021-04-01] MEDS ORDERED: iohexol 350MG/ML 100ml bottle IV ONE (10:56)
[2021-04-01 11:00] VITALS: BP 115/62
--- NOTE | 2021-04-01 11:22 | NUR ---
Reassessment Pt continues w/ adequate PO intake, mostly 50-100% of meals meeting needs. Pt noted to be noncooperative at times. No N/V/D noted. LBM 03/26 though receiving PRN MoM, No nutritional diagnosis at this time, will continue to monitor. Rec: 1. Continue Regular diet as tolerated 2. Bowel care per rx 3. Scaled wt this admit Addendum: 04/01/21 at [address] Amended: Links added.
[2021-04-01] MEDS: magnesium hydroxide 30ml (MOM) UD suspension PO PRN (13:24)
[2021-04-01 15:00] VITALS: BP 127/84
[2021-04-01 15:18] LABS: EOSINOPHILS # (AUTO) 0.2 X10'3 (0-0.9); LYMPHOCYTES # (AUTO) 1.3 X10'3 (1.1-4.8); MEAN PLATELET VOLUME 6.8 FL (7.4-10.4); MONOCYTES # (AUTO) 0.4 X10'3 (0-0.9); WHITE BLOOD COUNT 4.4 X10'3 (4.5-11.0)
[2021-04-01 15:19] LABS: BASOPHILS # (AUTO) 0.1 X10'3 (0-0.2); BASOPHILS % (AUTO) 1.3 % (0-1); EOSINOPHILS % (AUTO) 4.4 % (0-6); HEMATOCRIT 32.3 % (42.0-52.0); HEMOGLOBIN 11.4 g/dl (14.0-17.9); LYMPHOCYTES % (AUTO) 30.6 % (21-51); MEAN CORPUSCULAR HEMOGLOBIN 30.8 PG (27.0-31.0); MEAN CORPUSCULAR HGB CONC 35.4 g/dL (33.0-36.5); MONOCYTES % (AUTO) 9.5 % (2-12); NEUTROPHILS # (AUTO) 2.4 X10'3 (1.8-7.7); NEUTROPHILS % (AUTO) 54.2 % (42-75); PLATELET COUNT 423 X10'3 (140-440); RED BLOOD COUNT 3.71 X10'6 (4.70-6.10)
[2021-04-01 15:36] LABS: ALANINE AMINOTRANSFERASE 32 U/L (12-78); ALBUMIN 3.5 G/DL (3.4-5.0); ALBUMIN/GLOBULIN RATIO 0.9 (1.1-1.5); ALKALINE PHOSPHATASE 91 IU/L (46-116); ANION GAP 8 (8-16); ASPARTATE AMINO TRANSFERASE 20 U/L (10-37); BILIRUBIN,TOTAL 0.3 MG/DL (0.1-1.0); BLOOD UREA NITROGEN 18 MG/DL (7-18); BUN/CREATININE RATIO 20.7 (5.4-32.0); CALCIUM 8.6 MG/DL (8.5-10.1); CHLORIDE 105 MMOL/L (99-107); CREATININE 0.87 MG/DL (0.60-1.10); GLUCOSE 107 MG/DL (70-104); POTASSIUM 4.3 MMOL/L (3.5-5.1); SODIUM 139 MMOL/L (135-145); TOTAL CARBON DIOXIDE 25.6 MMOL/L (24-32); TOTAL PROTEIN 7.2 G/DL (6.4-8.2); eGFR > 90 ML/MIN
--- NOTE | 2021-04-01 18:00 | NUR ---
Patient in room PCU 3024. I have received report from David PLATT and had the opportunity to ask questions and assume patient care.
--- NOTE | 2021-04-01 18:40 | NUR ---
Problems reprioritized. Patient report given, questions answered & plan of care reviewed with Erin Ramos.
[2021-04-01 21:00] VITALS: BP 132/84
[2021-04-01] MEDS: heparin, porcine 5000 units/ml vial SQ SCH (21:54)
[2021-04-02] MEDS: HYDROcodone/acetaminophen 10/325mg tab PO PRN ×3 (00:29→15:52)
[2021-04-02 03:30] VITALS: BP 99/64
[2021-04-02] MEDS: HYDROmorphone inj. 0.5 MG/0.5 ML DISP.SYRIN IV PRN ×4 (04:18→17:34)
--- NOTE | 2021-04-02 05:37 | NUR ---
patient refused me drawing blood, said he wants lab to draw
[2021-04-02 06:00] VITALS: BP 125/77
--- NOTE | 2021-04-02 06:06 | NUR ---
Problems reprioritized. Patient report given, questions answered & plan of care reviewed with David RN.
--- NOTE | 2021-04-02 06:19 | NUR ---
Patient in room PCU 3024. I have received report from Erin Ramos and had the opportunity to ask questions and assume patient care.
[2021-04-02] MEDS: pantoprazole 40mg Tablet.DR PO SCH (07:30)
[2021-04-02 08:25] LABS: BASOPHILS % (AUTO) 0.9 % (0-1); EOSINOPHILS # (AUTO) 0.2 X10'3 (0-0.9); EOSINOPHILS % (AUTO) 4.4 % (0-6); HEMOGLOBIN 11.3 g/dl (14.0-17.9); LYMPHOCYTES # (AUTO) 1.2 X10'3 (1.1-4.8); MEAN CORPUSCULAR HEMOGLOBIN 30.5 PG (27.0-31.0); MEAN CORPUSCULAR HGB CONC 35.2 g/dL (33.0-36.5); MEAN CORPUSCULAR VOLUME 86.6 FL (78-98); MEAN PLATELET VOLUME 6.5 FL (7.4-10.4); MONOCYTES # (AUTO) 0.5 X10'3 (0-0.9); MONOCYTES % (AUTO) 11.3 % (2-12); NEUTROPHILS # (AUTO) 2.2 X10'3 (1.8-7.7); NEUTROPHILS % (AUTO) 54.4 % (42-75); PLATELET COUNT 402 X10'3 (140-440)
[2021-04-02 08:35] LABS: ALANINE AMINOTRANSFERASE 31 U/L (12-78); ALBUMIN 3.4 G/DL (3.4-5.0); ALBUMIN/GLOBULIN RATIO 0.9 (1.1-1.5); ALKALINE PHOSPHATASE 68 IU/L (46-116); ANION GAP 10 (8-16); ASPARTATE AMINO TRANSFERASE 22 U/L (10-37); BILIRUBIN,TOTAL 0.3 MG/DL (0.1-1.0); BLOOD UREA NITROGEN 19 MG/DL (7-18); BUN/CREATININE RATIO 24.4 (5.4-32.0); CALCIUM 8.5 MG/DL (8.5-10.1); CHLORIDE 105 MMOL/L (99-107); CREATININE 0.78 MG/DL (0.60-1.10); GLUCOSE 109 MG/DL (70-104); SODIUM 142 MMOL/L (135-145); TOTAL CARBON DIOXIDE 27.2 MMOL/L (24-32); TOTAL PROTEIN 7.1 G/DL (6.4-8.2); eGFR > 90 ML/MIN
[2021-04-02] MEDS: clopidogrel 75mg tablet PO SCH (09:09)
[2021-04-02] MEDS: atorvastatin 20mg tablet PO SCH (09:09)
[2021-04-02] MEDS: metoprolol succinate 25mg (24-HOUR) SR. Tablet PO SCH (09:09)
[2021-04-02] MEDS: lisinopril 20mg tablet PO SCH (09:09)
[2021-04-02] MEDS: polyethylene glycol 3350 17gm powd pack PO PRN (09:10)
[2021-04-02] MEDS: heparin, porcine 5000 units/ml vial SQ SCH ×2 (09:10→20:33)
--- NOTE | 2021-04-02 09:32 | NUR ---
I WAS REQUESTED TO ACCOMPANY THE MD INTO 3662F. THE PATIENT WAS ACTIVELY TALKING ON THE PHONE. I REQUESTED THAT HE PLACE HIS CALL ON HOLD FOR THE MD TO ROUND/EXAMINE HIM. HE STATED THAT "I WASN'T ON THE PHONE, THE DOCTOR JUST SAID I'M LEAVING, I AM NOT ON THE PHONE". THE PATIENT CONTINUED TO TALK OVER THE MD AND MYSELF. I FINALLY SUGGESTED IN A RAISED VOICE THAT HE BE QUIET AND LET ME FINISH TALKING HE CONTINUED TO SAY. HE DID STOP TALKING FOR A SHORT TIME AND ALLOW ME TO FINISH SPEAKING. THEN I OFFERED HIM TIME TO TALK. HE STATED MULTIPLE AREAS OF PAIN ON HIS BODY, RIGHT LEG, FOOT, SHOULDER/ARM NUMBNESS, HEADACHE ETC....FLIGHT OF IDEAS?? HE FINALLY ALLOWED THE MD TO EXAMINE HIM, STATING THAT HE WAS RECORDING EVERYTHING. MD IS MAKING ORDERS TO MATCH HIS COMPLAINTS. PATIENT IS DIFFICULT TO REASON WITH. I EXPLAINED THAT PHYSICAL THERAPY WILL BE COMING TO WORK WITH HIM AND HE NEEDS TO BE INVOLVED. I ASKED WHAT OPTIONS HE HAS IF HE HAS DIFFICULTY WORKING WITH PT. HE STATED "TO WALK". PHYSICAL THERAPY IS AWARE AND WILL SEE THIS PATIENT TODAY.
--- NOTE | 2021-04-02 09:51 | NUR ---
PATIENTS CALL LIGHT WAS ON, I REQUESTED THAT THE IDRIS LOUIS ANSWER. SHE TOLD ME THE PATIENT "FIRED" HER. I TOLD HER TO TELL HIM THAT SHE IS THE ONLY ONE TO ANSWER RIGHT NOW. THE NA WENT IN TO ANSWER HIS CALL LIGHT. HE STATED "I DON'T WANT YOU". THE NA TOLD ME THAT HE WANTS ME TO COME IN WITH HER TO HEAR IT FROM MY MOUTH THAT SHE IS THE ONLY ONE AVAILABLE TO ANSWER. I TOLD HER I WILL NOT GO IN AGAIN AT THIS TIME AND TO CONTINUE ANSWERING HIS LIGHT.
[2021-04-02 11:00] VITALS: BP 152/73
[2021-04-02] MEDS ORDERED: iohexol 300mg/ml 100ml inj. ONE (11:29)
--- NOTE | 2021-04-02 13:15 | NUR ---
MD Huang PAGER ID: [phone] MESSAGE: David U ext [phone]. Pt 4211T Mukesh mitchell. virtual radiology called with a critical finding on his CT that they need to report to you. Number is [phone] MD la will be reporting.
--- NOTE | 2021-04-02 13:51 | NUR ---
Virtially radiology MD la called reporting Peripheral enhancment of the hematoma on pt right leg. Impression is resolving hematoma. Reports occlusion unchanged from previous Scans.
[2021-04-02 15:00] VITALS: BP 98/79
--- NOTE | 2021-04-02 17:49 | NUR ---
PAGER ID: [phone] MESSAGE: GEOFF on [phone], CAN YOU DC THE PAIN MEDS FOR 3024B?
[2021-04-02] MEDS ORDERED: morphine 2 MG/ML inj. syringe IV PRN ×2 (17:50)
--- NOTE | 2021-04-02 18:10 | NUR ---
Problems reprioritized. Patient report given, questions answered & plan of care reviewed with Anjelica Ramos.
--- NOTE | 2021-04-02 20:25 | NUR ---
Patient refused care, physical assessment, and any measurement to be done to hematoma; patient verbalized "you do not have permission to talk to me; you don't need to come back. I can take care of myself." Attempted to explain to patient the potential risks of refusing care, patient once again said "I'm not going to tell you twice, baby girl. You can take a leave" in a threatening voice. tapeman notified of incident.
[2021-04-02] MEDS: HYDROcodone/acetaminophen 5mg/325mg tablet PO PRN (20:34)
--- NOTE | 2021-04-02 21:57 | NUR ---
Patient asked for IV Dilaudid, although PRN oral pain medication was given an hour ago. Informed that IV medication he's asking for was discontinued by MD. Patient unsatisfied, started yelling and pulled his phone out to record, I said "you do not have permission to record me." Patient said to call the doctor and tell him he's in pain, I said I will ask and get back to him.
--- NOTE | 2021-04-02 22:02 | NUR ---
PAGER ID: [phone] MESSAGE: [phone] LC Dejesus for Heriberto Archerlas in [phone]. Asking for IV dilaudid for 8/10 pain. Thanks
--- NOTE | 2021-04-02 22:04 | NUR ---
Nighttime Hospitalist called back and said that what the daytime hospitalist discontinued, she will not give it.
--- NOTE | 2021-04-02 22:35 | NUR ---
Patient refused vitals
--- NOTE | 2021-04-03 02:00 | NUR ---
Patient refused vitals
[2021-04-03] MEDS: HYDROcodone/acetaminophen 5mg/325mg tablet PO PRN ×2 (03:58→20:49)
[2021-04-03 06:00] VITALS: BP 127/70
--- NOTE | 2021-04-03 06:23 | NUR ---
Problems reprioritized. Patient report given, questions answered & plan of care reviewed with LC Hernandez.
--- NOTE | 2021-04-03 06:23 | NUR ---
Patient in room PCU 3024. I have received report from Anjelica Ramos and had the opportunity to ask questions and assume patient care.
[2021-04-03] MEDS: metoprolol succinate 25mg (24-HOUR) SR. Tablet PO SCH (08:00)
[2021-04-03] MEDS: clopidogrel 75mg tablet PO SCH (08:17)
[2021-04-03] MEDS: pantoprazole 40mg Tablet.DR PO SCH (08:17)
[2021-04-03] MEDS: atorvastatin 20mg tablet PO SCH (08:17)
[2021-04-03] MEDS: lisinopril 20mg tablet PO SCH (08:17)
[2021-04-03] MEDS: HYDROcodone/acetaminophen 10/325mg tab PO PRN ×2 (08:18→13:29)
[2021-04-03] MEDS: heparin, porcine 5000 units/ml vial SQ SCH ×2 (08:19→20:00)
[2021-04-03 09:17] LABS: BASOPHILS % (AUTO) 0.4 % (0-1); EOSINOPHILS # (AUTO) 0.1 X10'3 (0-0.9); EOSINOPHILS % (AUTO) 1.8 % (0-6); HEMATOCRIT 35.1 % (42.0-52.0); HEMOGLOBIN 12.2 g/dl (14.0-17.9); LYMPHOCYTES # (AUTO) 1.1 X10'3 (1.1-4.8); LYMPHOCYTES % (AUTO) 23.3 % (21-51); MEAN CORPUSCULAR HEMOGLOBIN 30.2 PG (27.0-31.0); MEAN CORPUSCULAR HGB CONC 34.7 g/dL (33.0-36.5); MEAN CORPUSCULAR VOLUME 87.1 FL (78-98); MEAN PLATELET VOLUME 6.7 FL (7.4-10.4); MONOCYTES # (AUTO) 0.3 X10'3 (0-0.9); MONOCYTES % (AUTO) 7.2 % (2-12); NEUTROPHILS # (AUTO) 3.3 X10'3 (1.8-7.7); NEUTROPHILS % (AUTO) 67.3 % (42-75); PLATELET COUNT 423 X10'3 (140-440); RED BLOOD COUNT 4.03 X10'6 (4.70-6.10); RED CELL DISTRIBUTION WIDTH 14.1 % (11.5-14.5); WHITE BLOOD COUNT 4.8 X10'3 (4.5-11.0)
[2021-04-03 10:10] LABS: ALANINE AMINOTRANSFERASE 31 U/L (12-78); ALBUMIN 3.7 G/DL (3.4-5.0); ALBUMIN/GLOBULIN RATIO 0.9 (1.1-1.5); ALKALINE PHOSPHATASE 74 IU/L (46-116); ANION GAP 10 (8-16); ASPARTATE AMINO TRANSFERASE 20 U/L (10-37); BILIRUBIN,TOTAL 0.3 MG/DL (0.1-1.0); BLOOD UREA NITROGEN 18 MG/DL (7-18); BUN/CREATININE RATIO 19.6 (5.4-32.0); CALCIUM 8.9 MG/DL (8.5-10.1); CHLORIDE 106 MMOL/L (99-107); CREATININE 0.92 MG/DL (0.60-1.10); GLUCOSE 119 MG/DL (70-104); POTASSIUM 4.4 MMOL/L (3.5-5.1); SODIUM 141 MMOL/L (135-145); TOTAL CARBON DIOXIDE 25.5 MMOL/L (24-32); TOTAL PROTEIN 7.6 G/DL (6.4-8.2); eGFR > 90 ML/MIN
[2021-04-03] MEDS ORDERED: iohexol 300mg/ml 100ml inj. ONE (10:52)
[2021-04-03 11:00] VITALS: BP 107/60
[2021-04-03 15:00] VITALS: BP 109/84
--- NOTE | 2021-04-03 16:00 | NUR ---
Pt agitated/elevated with this commercial lines underwriter requesting to speak with CM to order him a power chair so that he can "just leave" states he spoke with his insurance and they have already qualified him and he just needs an order.
--- NOTE | 2021-04-03 18:27 | NUR ---
Problems reprioritized. Patient report given, questions answered & plan of care reviewed with Pat Rn.
--- NOTE | 2021-04-03 18:30 | NUR ---
refused VS check Addendum: 04/04/21 at 0152 by Libia Ma RN Amended: Links added.
[2021-04-03] MEDS: diatr meglu/diatrizoate 30ml oral sol.-(3 dose) bottle PO SCH (21:00)
[2021-04-03 22:00] VITALS: BP 119/73
[2021-04-04] MEDS: HYDROcodone/acetaminophen 5mg/325mg tablet PO PRN ×4 (00:47→21:52)
[2021-04-04 05:47] LABS: BASOPHILS % (AUTO) 0.4 % (0-1); EOSINOPHILS # (AUTO) 0.1 X10'3 (0-0.9); EOSINOPHILS % (AUTO) 2.8 % (0-6); HEMATOCRIT 35.2 % (42.0-52.0); HEMOGLOBIN 11.8 g/dl (14.0-17.9); LYMPHOCYTES # (AUTO) 1.3 X10'3 (1.1-4.8); LYMPHOCYTES % (AUTO) 27.1 % (21-51); MEAN CORPUSCULAR HEMOGLOBIN 30.1 PG (27.0-31.0); MEAN CORPUSCULAR HGB CONC 33.5 g/dL (33.0-36.5); MEAN CORPUSCULAR VOLUME 89.8 FL (78-98); MEAN PLATELET VOLUME 6.6 FL (7.4-10.4); MONOCYTES # (AUTO) 0.5 X10'3 (0-0.9); MONOCYTES % (AUTO) 11.3 % (2-12); NEUTROPHILS # (AUTO) 2.7 X10'3 (1.8-7.7); NEUTROPHILS % (AUTO) 58.4 % (42-75); PLATELET COUNT 431 X10'3 (140-440); RED BLOOD COUNT 3.91 X10'6 (4.70-6.10); RED CELL DISTRIBUTION WIDTH 14.3 % (11.5-14.5); WHITE BLOOD COUNT 4.6 X10'3 (4.5-11.0)
[2021-04-04 05:52] LABS: ALANINE AMINOTRANSFERASE 30 U/L (12-78); ALBUMIN 3.6 G/DL (3.4-5.0); ALBUMIN/GLOBULIN RATIO 0.8 (1.1-1.5); ALKALINE PHOSPHATASE 72 IU/L (46-116); ANION GAP 9 (8-16); ASPARTATE AMINO TRANSFERASE 20 U/L (10-37); BILIRUBIN,TOTAL 0.3 MG/DL (0.1-1.0); BLOOD UREA NITROGEN 21 MG/DL (7-18); BUN/CREATININE RATIO 24.7 (5.4-32.0); CALCIUM 8.8 MG/DL (8.5-10.1); CHLORIDE 108 MMOL/L (99-107); CREATININE 0.85 MG/DL (0.60-1.10); GLUCOSE 98 MG/DL (70-104); POTASSIUM 4.1 MMOL/L (3.5-5.1); SODIUM 142 MMOL/L (135-145); TOTAL CARBON DIOXIDE 24.6 MMOL/L (24-32); TOTAL PROTEIN 7.9 G/DL (6.4-8.2); eGFR > 90 ML/MIN
[2021-04-04 06:00] VITALS: BP 95/51
--- NOTE | 2021-04-04 06:45 | NUR ---
Patient in room PCU 3024. I have received report from LC Davila and had the opportunity to ask questions and assume patient care.
[2021-04-04] MEDS: diatr meglu/diatrizoate 30ml oral sol.-(3 dose) bottle PO SCH ×2 (07:00→19:33)
--- NOTE | 2021-04-04 07:53 | NUR ---
Pt is very rude and demands I give him the pain medication before I can assess the patient. Pt's 0600 VS stable - administered [place] 5. Pt let me listen to heart and lungs but did not let me see his hematoma on right thigh. Pain is always 8-10/10.
[2021-04-04] MEDS: atorvastatin 20mg tablet PO SCH (07:59)
[2021-04-04] MEDS: pantoprazole 40mg Tablet.DR PO SCH (07:59)
[2021-04-04] MEDS: lisinopril 20mg tablet PO SCH (08:00)
[2021-04-04] MEDS: metoprolol succinate 25mg (24-HOUR) SR. Tablet PO SCH (08:00)
[2021-04-04] MEDS: heparin, porcine 5000 units/ml vial SQ SCH ×2 (08:00→20:04)
[2021-04-04] MEDS: clopidogrel 75mg tablet PO SCH (08:00)
[2021-04-04 11:00] VITALS: BP 99/62
--- NOTE | 2021-04-04 12:59 | NUR ---
Paged Dr Campuzano PAGER ID: [phone] MESSAGE: Room 3024B, Mukesh Hicks. Morphine active, D/C order? Thanks, Criss [phone]
--- NOTE | 2021-04-04 13:16 | NUR ---
Pt refused lunch d/t not being able to eat what was given. Demanding new tray with other food. Will not listen to any words that I say until I agree to order something new. I advised I will do what I can but in the meantime he called the kitchen direct and they sent up another tray within 20 minutes.
--- NOTE | 2021-04-04 13:23 | NUR ---
Called dietary [phone] - left message for new menu to be sent up for pt as his was taken.
--- NOTE | 2021-04-04 13:36 | NUR ---
Paged Dr Campuzano PAGER ID: [phone] MESSAGE: Room 3024B, Mukesh Hicks. Pt demanding more pain meds. Please advise. Thanks, Criss [phone]
[2021-04-04] MEDS: morphine 2 MG/ML inj. syringe IV PRN ×2 (14:01→20:04)
--- NOTE | 2021-04-04 14:07 | NUR ---
Per MD Justen zuniga to keep morphine but change frequency to Q6H. After administrating morphine, pt agreed to my measuring right thigh. 45.5cm circumference.
--- NOTE | 2021-04-04 15:00 | NUR ---
Pt refused 1500 VS
[2021-04-04 18:00] VITALS: BP 113/72
--- NOTE | 2021-04-04 18:33 | NUR ---
Problems reprioritized. Patient report given, questions answered & plan of care reviewed with LC Kwong.
[2021-04-04 22:00] VITALS: BP 105/65
[2021-04-05 02:08] VITALS: BP 124/77
[2021-04-05] MEDS: morphine 2 MG/ML inj. syringe IV PRN ×4 (02:08→21:03)
--- NOTE | 2021-04-05 02:48 | NUR ---
When removing the 2000 dose of morphine for this patient, I wasted 1mg of medication with fellow RN Cortney. Since removing that medication the [facility] has repeatedly stated that I have medications that need wasting. Cortney and I attempted to re-waste the medication thinking that the waste did not take in the [facility]; but when we attempted to do another waste, the [facility] was asking for a waste of a total of 3mg. Sherice in pharmacy was contacted. She states to leave the waste left undone and she will check with staff in the AM who are proficient with [facility] systems.
[2021-04-05] MEDS: HYDROcodone/acetaminophen 5mg/325mg tablet PO PRN ×4 (03:11→21:59)
[2021-04-05 06:00] VITALS: BP 118/70
--- NOTE | 2021-04-05 06:06 | NUR ---
Problems reprioritized. Patient report given, questions answered & plan of care reviewed with LC Kahn.
--- NOTE | 2021-04-05 06:20 | NUR ---
Patient in room PCU 3024. I have received report from LC Kwong and had the opportunity to ask questions and assume patient care.
[2021-04-05] MEDS: metoprolol succinate 25mg (24-HOUR) SR. Tablet PO SCH (08:00)
[2021-04-05] MEDS: pantoprazole 40mg Tablet.DR PO SCH (08:25)
[2021-04-05] MEDS: lisinopril 20mg tablet PO SCH (08:26)
[2021-04-05] MEDS: atorvastatin 20mg tablet PO SCH (08:26)
[2021-04-05] MEDS: clopidogrel 75mg tablet PO SCH (08:26)
[2021-04-05] MEDS: heparin, porcine 5000 units/ml vial SQ SCH ×2 (08:27→20:16)
[2021-04-05 09:10] LABS: BASOPHILS % (AUTO) 0.6 % (0-1); EOSINOPHILS # (AUTO) 0.1 X10'3 (0-0.9); EOSINOPHILS % (AUTO) 2.5 % (0-6); HEMATOCRIT 35.7 % (42.0-52.0); HEMOGLOBIN 11.8 g/dl (14.0-17.9); LYMPHOCYTES # (AUTO) 1.1 X10'3 (1.1-4.8); LYMPHOCYTES % (AUTO) 20.6 % (21-51); MEAN CORPUSCULAR HEMOGLOBIN 29.6 PG (27.0-31.0); MEAN CORPUSCULAR VOLUME 89.7 FL (78-98); MEAN PLATELET VOLUME 6.6 FL (7.4-10.4); MONOCYTES # (AUTO) 0.6 X10'3 (0-0.9); NEUTROPHILS # (AUTO) 3.4 X10'3 (1.8-7.7); NEUTROPHILS % (AUTO) 65.3 % (42-75); PLATELET COUNT 460 X10'3 (140-440); RED BLOOD COUNT 3.98 X10'6 (4.70-6.10); RED CELL DISTRIBUTION WIDTH 14.5 % (11.5-14.5); WHITE BLOOD COUNT 5.2 X10'3 (4.5-11.0)
[2021-04-05 09:26] LABS: ALANINE AMINOTRANSFERASE 31 U/L (12-78); ALBUMIN 3.7 G/DL (3.4-5.0); ALBUMIN/GLOBULIN RATIO 0.9 (1.1-1.5); ALKALINE PHOSPHATASE 76 IU/L (46-116); ANION GAP 10 (8-16); ASPARTATE AMINO TRANSFERASE 15 U/L (10-37); BILIRUBIN,TOTAL 0.3 MG/DL (0.1-1.0); BLOOD UREA NITROGEN 18 MG/DL (7-18); BUN/CREATININE RATIO 22.8 (5.4-32.0); CALCIUM 8.6 MG/DL (8.5-10.1); CHLORIDE 105 MMOL/L (99-107); CREATININE 0.79 MG/DL (0.60-1.10); GLUCOSE 107 MG/DL (70-104); POTASSIUM 3.8 MMOL/L (3.5-5.1); SODIUM 140 MMOL/L (135-145); TOTAL CARBON DIOXIDE 24.9 MMOL/L (24-32); TOTAL PROTEIN 7.6 G/DL (6.4-8.2); eGFR > 90 ML/MIN
[2021-04-05 11:00] VITALS: BP 115/71
[2021-04-05 15:00] VITALS: BP 120/73
[2021-04-05 18:00] VITALS: BP_SYST 129; BP_SYST 158; BP_DIAS 80; BP_DIAS 90
--- NOTE | 2021-04-05 18:00 | NUR ---
Patient in room PCU 3024. I have received report from ILEANA PLATT and had the opportunity to ask questions and assume patient care.
--- NOTE | 2021-04-05 18:33 | NUR ---
Problems reprioritized. Patient report given, questions answered & plan of care reviewed with LC More.
[2021-04-05 22:00] VITALS: BP 117/71
[2021-04-06 02:00] VITALS: BP 125/76
[2021-04-06] MEDS: HYDROcodone/acetaminophen 5mg/325mg tablet PO PRN ×4 (02:46→21:17)
[2021-04-06] MEDS: morphine 2 MG/ML inj. syringe IV PRN ×3 (04:27→18:40)
[2021-04-06 06:00] VITALS: BP 124/70
--- NOTE | 2021-04-06 06:20 | NUR ---
Patient in room PCU 3024. I have received report from Argenis PLATT and had the opportunity to ask questions and assume patient care.
--- NOTE | 2021-04-06 06:40 | NUR ---
Patient in room PCU 3024. I have received report from CINTHYA PLATT and had the opportunity to ask questions and assume patient care.
--- NOTE | 2021-04-06 06:41 | NUR ---
Problems reprioritized. Patient report given, questions answered & plan of care reviewed with COMFORT PLATT.
[2021-04-06] MEDS: heparin, porcine 5000 units/ml vial SQ SCH ×2 (07:45→21:17)
[2021-04-06] MEDS: atorvastatin 20mg tablet PO SCH (07:45)
[2021-04-06] MEDS: lisinopril 20mg tablet PO SCH (07:47)
[2021-04-06] MEDS: pantoprazole 40mg Tablet.DR PO SCH (07:48)
[2021-04-06] MEDS: metoprolol succinate 25mg (24-HOUR) SR. Tablet PO SCH (07:48)
[2021-04-06] MEDS: clopidogrel 75mg tablet PO SCH (07:49)
[2021-04-06] MEDS ORDERED: iohexol 350MG/ML 100ml bottle IV ONE (10:53)
[2021-04-06 11:00] VITALS: BP 134/82
[2021-04-06 15:00] VITALS: BP 113/67
[2021-04-06 18:00] VITALS: BP 114/74
--- NOTE | 2021-04-06 18:23 | NUR ---
Problems reprioritized. Patient report given, questions answered & plan of care reviewed with Argenis PLATT.
[2021-04-06 22:00] VITALS: BP 115/62
[2021-04-07] MEDS: morphine 2 MG/ML inj. syringe IV PRN ×4 (00:32→18:50)
[2021-04-07 02:00] VITALS: BP 117/64
[2021-04-07] MEDS: HYDROcodone/acetaminophen 5mg/325mg tablet PO PRN ×3 (04:34→20:52)
[2021-04-07 06:00] VITALS: BP 123/73
--- NOTE | 2021-04-07 06:00 | NUR ---
Problems reprioritized. Patient report given, questions answered & plan of care reviewed with COMFORT PLATT.
--- NOTE | 2021-04-07 06:00 | NUR ---
Patient in room PCU 3024. I have received report from Argenis PLATT and had the opportunity to ask questions and assume patient care.
[2021-04-07] MEDS: heparin, porcine 5000 units/ml vial SQ SCH (07:21)
[2021-04-07] MEDS: pantoprazole 40mg Tablet.DR PO SCH (07:23)
[2021-04-07] MEDS: clopidogrel 75mg tablet PO SCH (07:23)
[2021-04-07] MEDS: lisinopril 20mg tablet PO SCH (07:23)
[2021-04-07] MEDS: atorvastatin 20mg tablet PO SCH (07:24)
[2021-04-07] MEDS: metoprolol succinate 25mg (24-HOUR) SR. Tablet PO SCH (07:26)
--- NOTE | 2021-04-07 08:10 | NUR ---
Problems reprioritized. Patient report given, questions answered & plan of care reviewed with Argenis PLATT.
[2021-04-07 11:00] VITALS: BP 119/71
[2021-04-07 15:00] VITALS: BP 135/73
[2021-04-07 18:00] VITALS: BP 145/77
--- NOTE | 2021-04-07 18:00 | NUR ---
Patient in room PCU 3024. I have received report from COMFORT PLATT and had the opportunity to ask questions and assume patient care.
--- NOTE | 2021-04-07 18:28 | NUR ---
Problems reprioritized. Patient report given, questions answered & plan of care reviewed with Argenis PLATT.
[2021-04-07] MEDS ORDERED: ringers solution, lacted 1,000 ML IV ONE (19:05)
[2021-04-07 22:00] VITALS: BP 118/79
[2021-04-08] VITALS (9 sets, daily range): BP systolic 117–148; BP diastolic 62–86
[2021-04-08] MEDS: morphine 2 MG/ML inj. syringe IV PRN ×2 (00:50→07:04)
[2021-04-08] MEDS: HYDROcodone/acetaminophen 5mg/325mg tablet PO PRN ×3 (04:40→22:24)
--- NOTE | 2021-04-08 06:21 | NUR ---
Patient in room PCU 3024. I have received report from Argenis PLATT and had the opportunity to ask questions and assume patient care.
--- NOTE | 2021-04-08 06:45 | NUR ---
Problems reprioritized. Patient report given, questions answered & plan of care reviewed with KASH PLATT.
[2021-04-08] MEDS: pantoprazole 40mg Tablet.DR PO SCH (07:04)
[2021-04-08 07:38] LABS: PRE OP PARTIAL THROMB. TIME 28 SECONDS (22-32)
[2021-04-08 07:52] LABS: ALANINE AMINOTRANSFERASE 23 U/L (12-78); ALBUMIN 3.4 G/DL (3.4-5.0); ALBUMIN/GLOBULIN RATIO 0.9 (1.1-1.5); ALKALINE PHOSPHATASE 73 IU/L (46-116); ANION GAP 9 (8-16); ASPARTATE AMINO TRANSFERASE 16 U/L (10-37); BILIRUBIN,TOTAL 0.3 MG/DL (0.1-1.0); BLOOD UREA NITROGEN 18 MG/DL (7-18); BUN/CREATININE RATIO 25.7 (5.4-32.0); CALCIUM 8.6 MG/DL (8.5-10.1); CHLORIDE 108 MMOL/L (99-107); GLUCOSE 85 MG/DL (70-104); POTASSIUM 4.1 MMOL/L (3.5-5.1); SODIUM 141 MMOL/L (135-145); TOTAL CARBON DIOXIDE 23.6 MMOL/L (24-32); TOTAL PROTEIN 7.1 G/DL (6.4-8.2); eGFR > 90 ML/MIN
[2021-04-08] MEDS: metoprolol succinate 25mg (24-HOUR) SR. Tablet PO SCH (07:54)
[2021-04-08] MEDS: lisinopril 20mg tablet PO SCH (07:56)
[2021-04-08] MEDS: atorvastatin 20mg tablet PO SCH (07:56)
[2021-04-08 08:24] LABS: BASOPHILS % (AUTO) 1.1 % (0-1); EOSINOPHILS # (AUTO) 0.1 X10'3 (0-0.9); EOSINOPHILS % (AUTO) 3.2 % (0-6); LYMPHOCYTES # (AUTO) 1.1 X10'3 (1.1-4.8); LYMPHOCYTES % (AUTO) 28.3 % (21-51); MEAN CORPUSCULAR HEMOGLOBIN 30.1 PG (27.0-31.0); MEAN CORPUSCULAR HGB CONC 33.9 g/dL (33.0-36.5); MEAN CORPUSCULAR VOLUME 88.6 FL (78-98); MEAN PLATELET VOLUME 6.8 FL (7.4-10.4); MONOCYTES # (AUTO) 0.5 X10'3 (0-0.9); MONOCYTES % (AUTO) 12.4 % (2-12); NEUTROPHILS # (AUTO) 2.1 X10'3 (1.8-7.7); PRE OP HEMOGLOBIN 11.9 g/dL (14.0-17.9); PRE OP PLATELET COUNT 424 X10'3 (140-440); RED BLOOD COUNT 3.95 X10'6 (4.70-6.10); RED CELL DISTRIBUTION WIDTH 14.5 % (11.5-14.5)
[2021-04-08] MEDS ORDERED: ringers solution, lacted 1,000 ML IV SCH (08:50)
[2021-04-08] MEDS ORDERED: morphine 2 MG/ML inj. syringe IV PRN (08:50)
[2021-04-08] MEDS ORDERED: fentaNYL/PF 50MCG/1 ML 2ML syringe IV PRN (08:50)
[2021-04-08] MEDS ORDERED: ondansetron/PF 4mg/2ml inj IV PRN (08:50)
[2021-04-08] MEDS ORDERED: hydrALAZINE 20mg/ml inj. IV PRN (08:50)
[2021-04-08] MEDS ORDERED: labetalol 20mg/4ml (5mg/ml) syringe IV PRN (08:50)
[2021-04-08] MEDS ORDERED: midazolam 1 mg/ML 2ml injection ONE (09:26)
[2021-04-08] MEDS ORDERED: fentaNYL/PF 50MCG/1 ML 2ML syringe ONE (09:26)
[2021-04-08] MEDS ORDERED: ondansetron/PF 4mg/2ml inj ONE (09:27)
[2021-04-08] MEDS ORDERED: dexamethasone sod phosphate 4mg/ml inj. ONE (09:27)
[2021-04-08] MEDS ORDERED: LIDOcaine 2% (20mg/ml) 5ml vial ONE (09:27)
[2021-04-08] MEDS ORDERED: propofol inj 20 ML IV ONE (09:27)
[2021-04-08] MEDS ORDERED: ceFAZolin 1000mg inj ONE ×2 (09:45)
[2021-04-08] MEDS ORDERED: ePHEDrine 50MG/ML INJ. ONE (09:48)
[2021-04-08] MEDS ORDERED: BUPIVAcaine 0.5% inj/PF 30 ML ONE (09:58)
--- NOTE | 2021-04-08 10:35 | NUR ---
Received from OR via BED, accompanied by Anesthesiologist and report given by Anesthesiologist. PATIENT WAKING UP, NO S/S OF PAIN, V/S WNL, SCD ON, 20G TO RUE, RIGHT THIGH DRESSING CDI .
[2021-04-08] MEDS: morphine 4 MG/ML inj SYRINge IV PRN ×2 (11:01→11:21)
[2021-04-08] MEDS: fentaNYL/PF 50MCG/1 ML 2ML syringe IV PRN ×2 (11:06→11:12)
--- NOTE | 2021-04-08 11:25 | NUR ---
PATIENT A&OX4, C/O PAIN SEE SVETLANAR, V/S WNL, SCD ON, 20G TO RUE, RIGHT THIGH DRESSING CDI . PATIENT TAKEN TO 3024B WITH ALL BELONGINGS AND REPORT GIVEN TO HTML DEVELOPER WHO HAS TAKEN OVER PATIENT CARE.
[2021-04-08] MEDS: HYDROmorphone 1 mg/ml syringe IV PRN ×2 (13:14→19:26)
[2021-04-08] MEDS: normal saline 1000ml 1,000 ML IV SCH (14:15)
--- NOTE | 2021-04-08 16:57 | NUR ---
Discussed with patient the pain medicine, dose, frequency, and next dose.
--- NOTE | 2021-04-08 18:23 | NUR ---
KASH Yusuf in room U 3024. I have received report from KASH PLATT and had the opportunity to ask questions and assume patient care.
--- NOTE | 2021-04-08 18:23 | NUR ---
Problems reprioritized. Patient report given, questions answered & plan of care reviewed with Argenis PLATT.
--- NOTE | 2021-04-08 19:06 | NUR ---
Problems reprioritized. Patient report given, questions answered & plan of care reviewed with DALILA PLATT.
[2021-04-09] MEDS: HYDROmorphone 1 mg/ml syringe IV PRN ×5 (00:44→20:46)
[2021-04-09] MEDS: normal saline 1000ml 1,000 ML IV SCH ×2 (02:25→16:23)
[2021-04-09] MEDS: HYDROcodone/acetaminophen 5mg/325mg tablet PO PRN ×5 (04:54→22:03)
--- NOTE | 2021-04-09 06:31 | NUR ---
Patient in room PCU 3024. I have received report from gabriella park and had the opportunity to ask questions and assume patient care.
[2021-04-09 07:00] VITALS: BP 156/71
[2021-04-09] MEDS: pantoprazole 40mg Tablet.DR PO SCH (08:07)
[2021-04-09] MEDS: atorvastatin 20mg tablet PO SCH (08:07)
[2021-04-09] MEDS: metoprolol succinate 25mg (24-HOUR) SR. Tablet PO SCH (08:08)
[2021-04-09] MEDS: lisinopril 20mg tablet PO SCH (08:08)
[2021-04-09 11:00] VITALS: BP 132/68
--- NOTE | 2021-04-09 14:15 | NUR ---
Reassessment: Pt underwent R thigh compartment decompression 04/08, now w/ surgical wound. Pt continues w/ adequate PO intake, mostly 50-100% of meals on Regular diet meeting needs. No N/V/D noted. LBM 04/08. No nutritional diagnosis at this time, will continue to monitor. Rec: 1. Continue Regular diet as tolerated 2. Bowel care per rx 3. Scaled wt this admit Addendum: 04/09/21 at [address] Amended: Links added.
--- NOTE | 2021-04-09 17:44 | NUR ---
Problems reprioritized. Patient report given, questions answered & plan of care reviewed with mariellamedication reconciliation technician.
[2021-04-09 18:00] VITALS: BP 147/58
[2021-04-09] MEDS: heparin, porcine 5000 units/ml vial SQ SCH (20:41)
[2021-04-09 23:34] VITALS: BP 120/60
[2021-04-10] MEDS: HYDROmorphone 1 mg/ml syringe IV PRN ×6 (00:26→22:03)
[2021-04-10] MEDS: HYDROcodone/acetaminophen 5mg/325mg tablet PO PRN ×5 (02:12→19:50)
[2021-04-10] MEDS: normal saline 1000ml 1,000 ML IV SCH ×2 (02:49→19:47)
[2021-04-10 06:48] LABS: BASOPHILS % (AUTO) 0.3 % (0-1); EOSINOPHILS # (AUTO) 0.1 X10'3 (0-0.9); EOSINOPHILS % (AUTO) 1.6 % (0-6); HEMATOCRIT 30.5 % (42.0-52.0); HEMOGLOBIN 10.3 g/dl (14.0-17.9); LYMPHOCYTES # (AUTO) 1.5 X10'3 (1.1-4.8); LYMPHOCYTES % (AUTO) 30.8 % (21-51); MEAN CORPUSCULAR HEMOGLOBIN 30.1 PG (27.0-31.0); MEAN CORPUSCULAR HGB CONC 33.9 g/dL (33.0-36.5); MEAN CORPUSCULAR VOLUME 88.7 FL (78-98); MEAN PLATELET VOLUME 6.9 FL (7.4-10.4); MONOCYTES # (AUTO) 0.6 X10'3 (0-0.9); MONOCYTES % (AUTO) 11.5 % (2-12); NEUTROPHILS # (AUTO) 2.7 X10'3 (1.8-7.7); NEUTROPHILS % (AUTO) 55.8 % (42-75); PLATELET COUNT 389 X10'3 (140-440); RED BLOOD COUNT 3.44 X10'6 (4.70-6.10); RED CELL DISTRIBUTION WIDTH 14.6 % (11.5-14.5); WHITE BLOOD COUNT 4.9 X10'3 (4.5-11.0)
--- NOTE | 2021-04-10 06:57 | NUR ---
Problems reprioritized. Patient report given, questions answered & plan of care reviewed with LATONYA. Addendum: 04/10/21 at 0657 by Víctor Christian RN Amended: Links added.
--- NOTE | 2021-04-10 07:01 | NUR ---
Patient in room [facility]A 359. I have received report from Fermin PLATT and had the opportunity to ask questions and assume patient care.
[2021-04-10 07:12] LABS: ALANINE AMINOTRANSFERASE 23 U/L (12-78); ALBUMIN 3.2 G/DL (3.4-5.0); ALBUMIN/GLOBULIN RATIO 0.9 (1.1-1.5); ALKALINE PHOSPHATASE 74 IU/L (46-116); ANION GAP 9 (8-16); ASPARTATE AMINO TRANSFERASE 14 U/L (10-37); BILIRUBIN,TOTAL 0.3 MG/DL (0.1-1.0); BLOOD UREA NITROGEN 15 MG/DL (7-18); CALCIUM 8.1 MG/DL (8.5-10.1); CHLORIDE 110 MMOL/L (99-107); CREATININE 0.88 MG/DL (0.60-1.10); GLUCOSE 87 MG/DL (70-104); MAGNESIUM 1.9 MG/DL (1.5-2.4); PHOSPHORUS 4.3 MG/DL (2.3-4.5); POTASSIUM 4.2 MMOL/L (3.5-5.1); SODIUM 144 MMOL/L (135-145); TOTAL CARBON DIOXIDE 24.9 MMOL/L (24-32); TOTAL PROTEIN 6.6 G/DL (6.4-8.2); eGFR > 90 ML/MIN
[2021-04-10 07:27] VITALS: BP 146/56
[2021-04-10] MEDS: metoprolol succinate 25mg (24-HOUR) SR. Tablet PO SCH (08:41)
[2021-04-10] MEDS: clopidogrel 75mg tablet PO SCH (08:42)
[2021-04-10] MEDS: lisinopril 20mg tablet PO SCH (08:42)
[2021-04-10] MEDS: pantoprazole 40mg Tablet.DR PO SCH (08:42)
[2021-04-10] MEDS: atorvastatin 20mg tablet PO SCH (08:44)
[2021-04-10] MEDS: heparin, porcine 5000 units/ml vial SQ SCH ×2 (08:48→19:47)
[2021-04-10 12:00] VITALS: BP 147/76
[2021-04-10 18:00] VITALS: BP 154/75
--- NOTE | 2021-04-10 18:20 | NUR ---
Patient in room RHODA 359A. I have received report from LC Coelho and had the opportunity to ask questions and assume patient care.
--- NOTE | 2021-04-10 19:07 | NUR ---
Problems reprioritized. Patient report given, questions answered & plan of care reviewed with Anjelica PLATT.
[2021-04-11] VITALS: BP 181/74
[2021-04-11] MEDS: HYDROcodone/acetaminophen 5mg/325mg tablet PO PRN ×5 (00:11→20:57)
[2021-04-11] MEDS: normal saline 1000ml 1,000 ML IV SCH ×2 (03:00→17:57)
[2021-04-11] MEDS: HYDROmorphone 1 mg/ml syringe IV PRN ×4 (03:54→17:53)
--- NOTE | 2021-04-11 06:15 | NUR ---
Problems reprioritized. Patient report given, questions answered & plan of care reviewed with LC Coelho.
[2021-04-11 06:37] LABS: BASOPHILS # (AUTO) 0.1 X10'3 (0-0.2); BASOPHILS % (AUTO) 1.8 % (0-1); EOSINOPHILS # (AUTO) 0.2 X10'3 (0-0.9); EOSINOPHILS % (AUTO) 3.4 % (0-6); HEMATOCRIT 29.9 % (42.0-52.0); HEMOGLOBIN 10.3 g/dl (14.0-17.9); LYMPHOCYTES # (AUTO) 1.2 X10'3 (1.1-4.8); LYMPHOCYTES % (AUTO) 24.7 % (21-51); MEAN CORPUSCULAR HEMOGLOBIN 30.5 PG (27.0-31.0); MEAN CORPUSCULAR HGB CONC 34.4 g/dL (33.0-36.5); MEAN CORPUSCULAR VOLUME 88.8 FL (78-98); MEAN PLATELET VOLUME 6.6 FL (7.4-10.4); MONOCYTES # (AUTO) 0.6 X10'3 (0-0.9); MONOCYTES % (AUTO) 11.6 % (2-12); NEUTROPHILS # (AUTO) 2.9 X10'3 (1.8-7.7); NEUTROPHILS % (AUTO) 58.5 % (42-75); PLATELET COUNT 376 X10'3 (140-440); RED BLOOD COUNT 3.36 X10'6 (4.70-6.10); RED CELL DISTRIBUTION WIDTH 14.1 % (11.5-14.5); WHITE BLOOD COUNT 4.9 X10'3 (4.5-11.0)
--- NOTE | 2021-04-11 06:58 | NUR ---
Patient in room [facility]A 359. I have received report from Anjelica PLATT and had the opportunity to ask questions and assume patient care.
[2021-04-11 07:05] LABS: ALANINE AMINOTRANSFERASE 23 U/L (12-78); ALBUMIN/GLOBULIN RATIO 0.9 (1.1-1.5); ALKALINE PHOSPHATASE 79 IU/L (46-116); ANION GAP 10 (8-16); ASPARTATE AMINO TRANSFERASE 15 U/L (10-37); BILIRUBIN,TOTAL 0.3 MG/DL (0.1-1.0); BLOOD UREA NITROGEN 16 MG/DL (7-18); BUN/CREATININE RATIO 21.1 (5.4-32.0); CHLORIDE 109 MMOL/L (99-107); CREATININE 0.76 MG/DL (0.60-1.10); GLUCOSE 93 MG/DL (70-104); MAGNESIUM 1.8 MG/DL (1.5-2.4); PHOSPHORUS 4.7 MG/DL (2.3-4.5); POTASSIUM 3.8 MMOL/L (3.5-5.1); SODIUM 144 MMOL/L (135-145); TOTAL CARBON DIOXIDE 24.9 MMOL/L (24-32); TOTAL PROTEIN 6.3 G/DL (6.4-8.2); eGFR > 90 ML/MIN
[2021-04-11] MEDS: clopidogrel 75mg tablet PO SCH (07:44)
[2021-04-11] MEDS: pantoprazole 40mg Tablet.DR PO SCH (07:44)
[2021-04-11] MEDS: lisinopril 20mg tablet PO SCH (07:45)
[2021-04-11] MEDS: atorvastatin 20mg tablet PO SCH (07:46)
[2021-04-11] MEDS: heparin, porcine 5000 units/ml vial SQ SCH ×2 (07:48→20:58)
[2021-04-11 07:59] VITALS: BP 161/56
[2021-04-11] MEDS: metoprolol succinate 25mg (24-HOUR) SR. Tablet PO SCH (08:00)
[2021-04-11] MEDS: polyethylene glycol 3350 17gm powd pack PO PRN (10:25)
[2021-04-11 13:04] VITALS: BP 149/78
[2021-04-11] MEDS ORDERED: ketorolac trometh. 30mg/ml inj. IV PRN (18:50)
--- NOTE | 2021-04-11 19:02 | NUR ---
Problems reprioritized. Patient report given, questions answered & plan of care reviewed with Kalyan PLATT.
--- NOTE | 2021-04-11 19:03 | NUR ---
Patient in room [facility]A 340. I have received report from LATONYA PLATT and had the opportunity to ask questions and assume patient care.
[2021-04-11 20:00] VITALS: BP 139/83
[2021-04-12] VITALS: BP 128/73
[2021-04-12] MEDS: HYDROmorphone 1 mg/ml syringe IV PRN ×3 (00:59→11:19)
[2021-04-12] MEDS: HYDROcodone/acetaminophen 5mg/325mg tablet PO PRN ×2 (04:22→13:59)
[2021-04-12] MEDS: normal saline 1000ml 1,000 ML IV SCH (05:52)
--- NOTE | 2021-04-12 06:30 | NUR ---
Problems reprioritized. Patient report given, questions answered & plan of care reviewed with GIULIANA PLATT.
[2021-04-12 07:00] VITALS: BP 159/78
--- NOTE | 2021-04-12 07:12 | NUR ---
Patient in room [facility]ODA 340A. I have received report from LARRY JUAREZ RN and had the opportunity to ask questions and assume patient care.
[2021-04-12 07:38] LABS: BASOPHILS # (AUTO) 0.1 X10'3 (0-0.2); BASOPHILS % (AUTO) 1.5 % (0-1); EOSINOPHILS # (AUTO) 0.2 X10'3 (0-0.9); EOSINOPHILS % (AUTO) 3.5 % (0-6); HEMATOCRIT 32.1 % (42.0-52.0); HEMOGLOBIN 10.9 g/dl (14.0-17.9); LYMPHOCYTES % (AUTO) 16.2 % (21-51); MEAN CORPUSCULAR HEMOGLOBIN 29.9 PG (27.0-31.0); MEAN PLATELET VOLUME 6.8 FL (7.4-10.4); MONOCYTES # (AUTO) 0.8 X10'3 (0-0.9); MONOCYTES % (AUTO) 12.9 % (2-12); NEUTROPHILS % (AUTO) 65.9 % (42-75); PLATELET COUNT 416 X10'3 (140-440); RED BLOOD COUNT 3.65 X10'6 (4.70-6.10); RED CELL DISTRIBUTION WIDTH 14.1 % (11.5-14.5); WHITE BLOOD COUNT 6.1 X10'3 (4.5-11.0)
[2021-04-12] MEDS: pantoprazole 40mg Tablet.DR PO SCH (07:51)
[2021-04-12] MEDS: clopidogrel 75mg tablet PO SCH (07:56)
[2021-04-12] MEDS: lisinopril 20mg tablet PO SCH (07:56)
[2021-04-12] MEDS: atorvastatin 20mg tablet PO SCH (07:56)
[2021-04-12] MEDS: metoprolol succinate 25mg (24-HOUR) SR. Tablet PO SCH (07:58)
[2021-04-12] MEDS: heparin, porcine 5000 units/ml vial SQ SCH ×2 (07:58→19:38)
[2021-04-12 08:07] LABS: ALANINE AMINOTRANSFERASE 21 U/L (12-78); ALBUMIN 3.3 G/DL (3.4-5.0); ALBUMIN/GLOBULIN RATIO 0.9 (1.1-1.5); ALKALINE PHOSPHATASE 81 IU/L (46-116); ANION GAP 12 (8-16); ASPARTATE AMINO TRANSFERASE 14 U/L (10-37); BILIRUBIN,TOTAL 0.4 MG/DL (0.1-1.0); BLOOD UREA NITROGEN 11 MG/DL (7-18); BUN/CREATININE RATIO 12.9 (5.4-32.0); CALCIUM 8.3 MG/DL (8.5-10.1); CHLORIDE 107 MMOL/L (99-107); CREATININE 0.85 MG/DL (0.60-1.10); GLUCOSE 87 MG/DL (70-104); MAGNESIUM 1.8 MG/DL (1.5-2.4); PHOSPHORUS 5.1 MG/DL (2.3-4.5); POTASSIUM 3.8 MMOL/L (3.5-5.1); SODIUM 143 MMOL/L (135-145); TOTAL CARBON DIOXIDE 23.9 MMOL/L (24-32); TOTAL PROTEIN 6.9 G/DL (6.4-8.2); eGFR > 90 ML/MIN
--- NOTE | 2021-04-12 10:05 | NUR ---
PATIENT REFUSED METOPROLOL, DR MÉNDEZ PAGER ID: [phone] MESSAGE: MANISHA AnneA: ELADIO: PATIENT REFUSED METOPROLOL. BP STABLE
[2021-04-12 12:00] VITALS: BP 130/79
--- NOTE | 2021-04-12 19:00 | NUR ---
Patient in room [facility] 340. I have received report from LC Srinivasan and had the opportunity to ask questions and assume patient care.
--- NOTE | 2021-04-12 19:13 | NUR ---
Problems reprioritized. Patient report given, questions answered & plan of care reviewed with LC CAMP.
--- NOTE | 2021-04-12 19:26 | NUR ---
I went in with patients pain medication. He started yelling at me saying; I've been in pain for hours and have not seen a nurse. He explained to him that I have his Fine and that I was getting report on my patients. I mentioned that the tech had answered his call light three times and that I came right in after report. He was talking over me and saying, "I should have been in sooner." I explained that I came in as soon as I received report. He told me he wants his Dilaudid he should not be lying here in pain for three hours. I explained that I just go on shift and am here now with his pain medication, and that he is be prepared to go home and that is why the Dr most likely got rid of the Dilaudid. He continued to tell yell, and threatened to marly, he then started recording me. I told him that I was not going to continue to be talked to this way, I gave him a chance to take the Fine and he continued on yelling and so I walked out. He called nurses station and spoke to the charge nurse, and threatened to get violent. Charge nurse is in the patients room now and he continues to yell and make threats.
[2021-04-12] MEDS: HYDROcodone/acetaminophen 10/325mg tab PO PRN (19:34)
--- NOTE | 2021-04-12 19:45 | NUR ---
Charge Nurse, Nguyen took over care of patient due to his behaviors.
[2021-04-12 20:00] VITALS: BP 186/87
[2021-04-12] MEDS: LORazepam 2 mg/ml vial IV PRN (20:10)
[2021-04-13] VITALS: BP 133/78
[2021-04-13] MEDS: HYDROcodone/acetaminophen 10/325mg tab PO PRN ×3 (00:54→08:47)
[2021-04-13 06:30] VITALS: BP 149/111
--- NOTE | 2021-04-13 07:10 | NUR ---
Problems reprioritized. Patient report given, questions answered & plan of care reviewed with Kylee RN.
--- NOTE | 2021-04-13 07:10 | NUR ---
Patient in room [facility] 340. I have received report from LC Cedillo and had the opportunity to ask questions and assume patient care.
[2021-04-13 07:49] LABS: BASOPHILS # (AUTO) 0.1 X10'3 (0-0.2); BASOPHILS % (AUTO) 1.4 % (0-1); EOSINOPHILS # (AUTO) 0.2 X10'3 (0-0.9); EOSINOPHILS % (AUTO) 3.5 % (0-6); HEMATOCRIT 33.5 % (42.0-52.0); HEMOGLOBIN 11.5 g/dl (14.0-17.9); LYMPHOCYTES % (AUTO) 23.8 % (21-51); MEAN CORPUSCULAR HEMOGLOBIN 29.8 PG (27.0-31.0); MEAN CORPUSCULAR HGB CONC 34.3 g/dL (33.0-36.5); MEAN CORPUSCULAR VOLUME 86.9 FL (78-98); MONOCYTES # (AUTO) 0.4 X10'3 (0-0.9); MONOCYTES % (AUTO) 10.1 % (2-12); NEUTROPHILS # (AUTO) 2.7 X10'3 (1.8-7.7); NEUTROPHILS % (AUTO) 61.2 % (42-75); PLATELET COUNT 432 X10'3 (140-440); RED BLOOD COUNT 3.85 X10'6 (4.70-6.10); RED CELL DISTRIBUTION WIDTH 14.3 % (11.5-14.5); WHITE BLOOD COUNT 4.4 X10'3 (4.5-11.0)
[2021-04-13 08:09] LABS: ALANINE AMINOTRANSFERASE 23 U/L (12-78); ALBUMIN 3.2 G/DL (3.4-5.0); ALBUMIN/GLOBULIN RATIO 0.8 (1.1-1.5); ALKALINE PHOSPHATASE 86 IU/L (46-116); ANION GAP 12 (8-16); ASPARTATE AMINO TRANSFERASE 13 U/L (10-37); BILIRUBIN,TOTAL 0.3 MG/DL (0.1-1.0); BLOOD UREA NITROGEN 13 MG/DL (7-18); BUN/CREATININE RATIO 17.8 (5.4-32.0); CALCIUM 8.7 MG/DL (8.5-10.1); CHLORIDE 108 MMOL/L (99-107); CREATININE 0.73 MG/DL (0.60-1.10); GLUCOSE 107 MG/DL (70-104); MAGNESIUM 1.9 MG/DL (1.5-2.4); PHOSPHORUS 4.1 MG/DL (2.3-4.5); POTASSIUM 3.8 MMOL/L (3.5-5.1); SODIUM 144 MMOL/L (135-145); TOTAL CARBON DIOXIDE 24.2 MMOL/L (24-32); TOTAL PROTEIN 7.2 G/DL (6.4-8.2); eGFR > 90 ML/MIN
[2021-04-13] MEDS: atorvastatin 20mg tablet PO SCH (08:44)
[2021-04-13] MEDS: metoprolol succinate 25mg (24-HOUR) SR. Tablet PO SCH (08:44)
[2021-04-13] MEDS: clopidogrel 75mg tablet PO SCH (08:45)
[2021-04-13] MEDS: lisinopril 20mg tablet PO SCH (08:45)
[2021-04-13] MEDS: heparin, porcine 5000 units/ml vial SQ SCH ×2 (08:45→19:35)
[2021-04-13] MEDS: pantoprazole 40mg Tablet.DR PO SCH (08:50)
[2021-04-13] MEDS ORDERED: oxyCODONE/APAP 5-325mg tablet PO PRN (09:30)
[2021-04-13 11:00] VITALS: BP 148/81
--- NOTE | 2021-04-13 13:41 | NUR ---
Received a phone call from a law firm (I cannot remember the name of the woman I spoke to), the staff asking the call to be transferred to this patient room. When I asked about what is this about, she replied to me "it's about his case". Primary nurse Kylee notified about this. I also notified [employer] Grader Richelle about this phone call. Addendum: 04/13/21 at 1345 by Gorge Goode RN The call was not transferred to the patient as she told me she did not need to because the patient already calling her.
--- NOTE | 2021-04-13 19:00 | NUR ---
Problems reprioritized. Patient report given, questions answered & plan of care reviewed with LC Cedillo.
[2021-04-13] MEDS: oxyCODONE/APAP 10/325mg tablet PO PRN (19:35)
[2021-04-13 20:00] VITALS: BP 130/84
[2021-04-14] MEDS: oxyCODONE/APAP 10/325mg tablet PO PRN ×4 (01:06→21:31)
[2021-04-14 05:21] VITALS: BP 125/76
[2021-04-14 06:30] VITALS: BP 145/83
[2021-04-14 06:44] LABS: ALANINE AMINOTRANSFERASE 23 U/L (12-78); ALBUMIN 3.3 G/DL (3.4-5.0); ALBUMIN/GLOBULIN RATIO 0.8 (1.1-1.5); ALKALINE PHOSPHATASE 80 IU/L (46-116); ANION GAP 12 (8-16); ASPARTATE AMINO TRANSFERASE 18 U/L (10-37); BILIRUBIN,TOTAL 0.2 MG/DL (0.1-1.0); BLOOD UREA NITROGEN 20 MG/DL (7-18); BUN/CREATININE RATIO 22.7 (5.4-32.0); CALCIUM 8.6 MG/DL (8.5-10.1); CHLORIDE 108 MMOL/L (99-107); CREATININE 0.88 MG/DL (0.60-1.10); GLUCOSE 94 MG/DL (70-104); PHOSPHORUS 4.8 MG/DL (2.3-4.5); POTASSIUM 4.4 MMOL/L (3.5-5.1); SODIUM 144 MMOL/L (135-145); TOTAL CARBON DIOXIDE 24.4 MMOL/L (24-32); TOTAL PROTEIN 7.2 G/DL (6.4-8.2); eGFR > 90 ML/MIN
--- NOTE | 2021-04-14 07:10 | NUR ---
Patient in room [facility] 340. I have received report from LC Cedillo and had the opportunity to ask questions and assume patient care.
[2021-04-14] MEDS: pantoprazole 40mg Tablet.DR PO SCH (07:42)
[2021-04-14] MEDS: metoprolol succinate 25mg (24-HOUR) SR. Tablet PO SCH (07:42)
[2021-04-14] MEDS: atorvastatin 20mg tablet PO SCH (07:42)
[2021-04-14] MEDS: lisinopril 20mg tablet PO SCH (07:42)
[2021-04-14] MEDS: clopidogrel 75mg tablet PO SCH (07:42)
[2021-04-14] MEDS: heparin, porcine 5000 units/ml vial SQ SCH ×2 (07:43→21:33)
[2021-04-14 08:11] LABS: BASOPHILS % (AUTO) 0.3 % (0-1); EOSINOPHILS # (AUTO) 0.1 X10'3 (0-0.9); EOSINOPHILS % (AUTO) 3.4 % (0-6); HEMATOCRIT 34.9 % (42.0-52.0); LYMPHOCYTES # (AUTO) 1.2 X10'3 (1.1-4.8); LYMPHOCYTES % (AUTO) 28.5 % (21-51); MEAN CORPUSCULAR HEMOGLOBIN 29.9 PG (27.0-31.0); MEAN CORPUSCULAR HGB CONC 34.3 g/dL (33.0-36.5); MEAN CORPUSCULAR VOLUME 87.2 FL (78-98); MEAN PLATELET VOLUME 6.6 FL (7.4-10.4); MONOCYTES # (AUTO) 0.5 X10'3 (0-0.9); MONOCYTES % (AUTO) 12.6 % (2-12); NEUTROPHILS # (AUTO) 2.3 X10'3 (1.8-7.7); NEUTROPHILS % (AUTO) 55.2 % (42-75); PLATELET COUNT 429 X10'3 (140-440); WHITE BLOOD COUNT 4.2 X10'3 (4.5-11.0)
[2021-04-14 11:00] VITALS: BP 147/98
[2021-04-14 18:00] VITALS: BP 109/62
--- NOTE | 2021-04-14 18:20 | NUR ---
Problems reprioritized. Patient report given, questions answered & plan of care reviewed with LC Russo.
--- NOTE | 2021-04-14 18:23 | NUR ---
Patient in room [facility] 340. I have received report from Gray PLATT and had the opportunity to ask questions and assume patient care. Addendum: 04/15/21 at 0022 by Rafaela Galicia RN I received report from Tamar PLATT
[2021-04-14] MEDS: magnesium hydroxide 30ml (MOM) UD suspension PO PRN (23:12)
[2021-04-15] VITALS: BP 123/81
[2021-04-15] MEDS: oxyCODONE/APAP 10/325mg tablet PO PRN ×3 (03:46→18:24)
--- NOTE | 2021-04-15 06:08 | NUR ---
Problems reprioritized. Patient report given, questions answered & plan of care reviewed with Meliton RN.
--- NOTE | 2021-04-15 07:06 | NUR ---
Patient in room [facility] 340. I have received report from Rafaela PLATT and had the opportunity to ask questions and assume patient care.
[2021-04-15] MEDS: metoprolol succinate 25mg (24-HOUR) SR. Tablet PO SCH (08:00)
[2021-04-15 08:27] VITALS: BP 115/75
[2021-04-15] MEDS: heparin, porcine 5000 units/ml vial SQ SCH ×2 (11:02→19:32)
[2021-04-15] MEDS: lisinopril 20mg tablet PO SCH (11:04)
[2021-04-15] MEDS: atorvastatin 20mg tablet PO SCH (11:05)
[2021-04-15] MEDS: clopidogrel 75mg tablet PO SCH (11:06)
[2021-04-15] MEDS: pantoprazole 40mg Tablet.DR PO SCH (11:06)
[2021-04-15 13:08] VITALS: BP 113/72
[2021-04-15] MEDS: HYDROmorphone inj. 0.5 MG/0.5 ML DISP.SYRIN IV PRN (14:38)
[2021-04-15 18:00] VITALS: BP 117/68
--- NOTE | 2021-04-15 18:29 | NUR ---
Problems reprioritized. Patient report given, questions answered & plan of care reviewed with Rafaela PLATT.
--- NOTE | 2021-04-15 18:30 | NUR ---
Patient in room [facility] 340. I have received report from marlon PLATT and had the opportunity to ask questions and assume patient care.
[2021-04-15] MEDS: polyethylene glycol 3350 17gm powd pack PO PRN (19:42)
[2021-04-16] VITALS: BP 124/89
[2021-04-16] MEDS: oxyCODONE/APAP 10/325mg tablet PO PRN ×3 (00:05→18:58)
--- NOTE | 2021-04-16 06:15 | NUR ---
Problems reprioritized. Patient report given, questions answered & plan of care reviewed with Meliton RN.
--- NOTE | 2021-04-16 06:52 | NUR ---
Patient in room [facility] 340. I have received report from Rafaela PLATT and had the opportunity to ask questions and assume patient care.
[2021-04-16 07:00] VITALS: BP 108/64
[2021-04-16] MEDS: metoprolol succinate 25mg (24-HOUR) SR. Tablet PO SCH (08:00)
[2021-04-16] MEDS: lisinopril 20mg tablet PO SCH (08:00)
[2021-04-16] MEDS: pantoprazole 40mg Tablet.DR PO SCH (08:29)
[2021-04-16] MEDS: clopidogrel 75mg tablet PO SCH (08:29)
[2021-04-16] MEDS: atorvastatin 20mg tablet PO SCH (08:30)
[2021-04-16] MEDS: heparin, porcine 5000 units/ml vial SQ SCH ×2 (08:35→19:00)
--- NOTE | 2021-04-16 11:48 | NUR ---
Reassessment: Pt s/p R thigh compartment decompression 04/08 w/ surgical wound. Pt continues w/ adequate PO intake, mostly 75-100% of meals on Regular diet meeting needs. No N/V/D noted. LBM 04/12 noted to be constipated, receiving PRN bowel care. No nutritional diagnosis at this time, will continue to monitor. Rec: 1. Continue Regular diet as tolerated 2. Bowel care per rx 3. Scaled wt this admit Addendum: 04/16/21 at [address] Amended: Links added.
[2021-04-16] MEDS: HYDROmorphone inj. 0.5 MG/0.5 ML DISP.SYRIN IV PRN (13:56)
[2021-04-16 18:00] VITALS: BP 126/77
--- NOTE | 2021-04-16 18:31 | NUR ---
Patient in room [facility] 340. I have received report from LC Coelho and had the opportunity to ask questions and assume patient care.
--- NOTE | 2021-04-16 18:50 | NUR ---
Problems reprioritized. Patient report given, questions answered & plan of care reviewed with Amy PLATT.
[2021-04-17] VITALS: BP 123/87
[2021-04-17] MEDS: oxyCODONE/APAP 10/325mg tablet PO PRN ×2 (01:33→07:23)
--- NOTE | 2021-04-17 04:31 | NUR ---
Patient asked to have both his Soma and the Percocet 10. I told him I would look and see what was available to him. The patient had received the Percocet about 3 hours before and it is a Q6h. I told him that it was not available because he had already received it. He said he did not receive anything, denying that he had gotten the Percocet and was getting upset. I told him that he had received it. He wanted to know who it was that gave it to him. I told him that it was the Charge nurse, January. He eventually calmed down and took the Soma.
--- NOTE | 2021-04-17 06:25 | NUR ---
Problems reprioritized. Patient report given, questions answered & plan of care reviewed with LC Pennington.
--- NOTE | 2021-04-17 06:49 | NUR ---
Patient in room [facility] 340. I have received report from Amy PLATT and had the opportunity to ask questions and assume patient care.
[2021-04-17 07:00] VITALS: BP 129/86
[2021-04-17] MEDS: clopidogrel 75mg tablet PO SCH (07:22)
[2021-04-17] MEDS: pantoprazole 40mg Tablet.DR PO SCH (07:23)
[2021-04-17] MEDS: metoprolol succinate 25mg (24-HOUR) SR. Tablet PO SCH (07:23)
[2021-04-17] MEDS: lisinopril 20mg tablet PO SCH (07:24)
[2021-04-17] MEDS: atorvastatin 20mg tablet PO SCH (07:24)
[2021-04-17] MEDS: heparin, porcine 5000 units/ml vial SQ SCH ×2 (07:25→19:25)
--- NOTE | 2021-04-17 08:42 | NUR ---
Paged Dr. Max PAGER ID: [phone] MESSAGE: Walter Pennington RN ext [phone]. RE: Mukesh Hicks. Patient asking for a Nicotine patch, he said he smokes 1 pack a day.
--- NOTE | 2021-04-17 09:31 | NUR ---
Per Dr. Max's instruction, he wants patient to be on Dilaudid every 4 hours PRN instead of just prior to physical therapy
--- NOTE | 2021-04-17 09:34 | NUR ---
Paged PT regarding Dr. Max requesting a squeeze ball for the hand exercise
[2021-04-17 11:00] VITALS: BP 127/78
--- NOTE | 2021-04-17 11:07 | NUR ---
Patient resting comfortably at this time when I made rounds.
[2021-04-17] MEDS: HYDROmorphone inj. 0.5 MG/0.5 ML DISP.SYRIN IV PRN ×3 (12:16→21:33)
[2021-04-17 18:00] VITALS: BP 122/73
--- NOTE | 2021-04-17 18:51 | NUR ---
Problems reprioritized. Patient report given, questions answered & plan of care reviewed with Amy PLATT.
[2021-04-18] VITALS: BP 110/70
--- NOTE | 2021-04-18 06:15 | NUR ---
Problems reprioritized. Patient report given, questions answered & plan of care reviewed with LC Pennington.
[2021-04-18 07:00] VITALS: BP 126/62
[2021-04-18] MEDS: HYDROmorphone inj. 0.5 MG/0.5 ML DISP.SYRIN IV PRN ×3 (08:24→16:50)
[2021-04-18] MEDS: metoprolol succinate 25mg (24-HOUR) SR. Tablet PO SCH (08:24)
[2021-04-18] MEDS: pantoprazole 40mg Tablet.DR PO SCH (08:24)
[2021-04-18] MEDS: atorvastatin 20mg tablet PO SCH (08:24)
[2021-04-18] MEDS: lisinopril 20mg tablet PO SCH (08:24)
[2021-04-18] MEDS: clopidogrel 75mg tablet PO SCH (08:24)
[2021-04-18] MEDS: heparin, porcine 5000 units/ml vial SQ SCH ×2 (08:25→20:38)
[2021-04-18 11:00] VITALS: BP 115/66
--- NOTE | 2021-04-18 18:35 | NUR ---
Patient in room [facility] 340. I have received report from Gorge PLATT and had the opportunity to ask questions and assume patient care.
--- NOTE | 2021-04-18 18:45 | NUR ---
Problems reprioritized. Patient report given, questions answered & plan of care reviewed with Karli PLATT.
[2021-04-18 20:00] VITALS: BP 118/72
[2021-04-18] MEDS: oxyCODONE/APAP 10/325mg tablet PO PRN (20:38)
[2021-04-18 23:50] VITALS: BP 122/70
[2021-04-19] MEDS: HYDROmorphone inj. 0.5 MG/0.5 ML DISP.SYRIN IV PRN ×5 (00:43→21:49)
--- NOTE | 2021-04-19 06:54 | NUR ---
Problems reprioritized. Patient report given, questions answered & plan of care reviewed with Aide PLATT.
[2021-04-19 07:00] VITALS: BP 114/72
--- NOTE | 2021-04-19 07:00 | NUR ---
Patient in room [facility] 340. I have received report from Karli PLATT and had the opportunity to ask questions and assume patient care.
[2021-04-19] MEDS: pantoprazole 40mg Tablet.DR PO SCH (07:35)
[2021-04-19] MEDS: heparin, porcine 5000 units/ml vial SQ SCH ×2 (08:33→19:54)
[2021-04-19] MEDS: metoprolol succinate 25mg (24-HOUR) SR. Tablet PO SCH (08:33)
[2021-04-19] MEDS: lisinopril 20mg tablet PO SCH (08:33)
[2021-04-19] MEDS: atorvastatin 20mg tablet PO SCH (08:33)
[2021-04-19] MEDS: clopidogrel 75mg tablet PO SCH (08:33)
[2021-04-19 11:00] VITALS: BP 112/67
--- NOTE | 2021-04-19 13:38 | NUR ---
[place] to right thigh removed and 1/2 inch steri strips placed per MD order, patient tolerated well. Education provided pre and post staple removal with pt verbalizing understanding and willingness to comply with instructions. Will continue to monitor.
[2021-04-19] MEDS: oxyCODONE/APAP 10/325mg tablet PO PRN (15:10)
--- NOTE | 2021-04-19 18:30 | NUR ---
Patient in room [facility] 340. I have received report from Aide PLATT and had the opportunity to ask questions and assume patient care.
--- NOTE | 2021-04-19 18:45 | NUR ---
Problems reprioritized. Patient report given, questions answered & plan of care reviewed with Karli PLATT.
[2021-04-19 19:00] VITALS: BP 125/71
[2021-04-20] VITALS: BP 127/62
[2021-04-20] MEDS: HYDROmorphone inj. 0.5 MG/0.5 ML DISP.SYRIN IV PRN ×6 (01:47→23:47)
--- NOTE | 2021-04-20 06:23 | NUR ---
Problems reprioritized. Patient report given, questions answered & plan of care reviewed with Roderick PLATT.
--- NOTE | 2021-04-20 06:26 | NUR ---
Patient in room [facility] 340. I have received report from LC Calvillo and had the opportunity to ask questions and assume patient care.
[2021-04-20 07:00] VITALS: BP 148/80
[2021-04-20] MEDS: lisinopril 20mg tablet PO SCH (07:54)
[2021-04-20] MEDS: atorvastatin 20mg tablet PO SCH (07:54)
[2021-04-20] MEDS: pantoprazole 40mg Tablet.DR PO SCH (07:54)
[2021-04-20] MEDS: clopidogrel 75mg tablet PO SCH (07:54)
[2021-04-20] MEDS: metoprolol succinate 25mg (24-HOUR) SR. Tablet PO SCH (07:54)
[2021-04-20] MEDS: heparin, porcine 5000 units/ml vial SQ SCH ×2 (07:55→19:55)
[2021-04-20] MEDS: oxyCODONE/APAP 10/325mg tablet PO PRN (08:01)
[2021-04-20 12:00] VITALS: BP 118/70
[2021-04-20 18:00] VITALS: BP 113/71
--- NOTE | 2021-04-20 19:01 | NUR ---
Patient in room [facility] 340. I have received report from GÉNESIS PLATT and had the opportunity to ask questions and assume patient care.
[2021-04-20] MEDS: magnesium hydroxide 30ml (MOM) UD suspension PO PRN (19:55)
[2021-04-21] VITALS: BP 129/79
[2021-04-21] MEDS: HYDROmorphone inj. 0.5 MG/0.5 ML DISP.SYRIN IV PRN ×5 (03:49→20:39)
--- NOTE | 2021-04-21 06:14 | NUR ---
Problems reprioritized. Patient report given, questions answered & plan of care reviewed with GÉNESIS PLATT.
--- NOTE | 2021-04-21 06:16 | NUR ---
Patient in room [facility] 340. I have received report from LC Beasley and had the opportunity to ask questions and assume patient care.
[2021-04-21] MEDS: metoprolol succinate 25mg (24-HOUR) SR. Tablet PO SCH (08:00)
[2021-04-21] MEDS: atorvastatin 20mg tablet PO SCH (08:04)
[2021-04-21] MEDS: pantoprazole 40mg Tablet.DR PO SCH (08:04)
[2021-04-21] MEDS: clopidogrel 75mg tablet PO SCH (08:04)
[2021-04-21] MEDS: lisinopril 20mg tablet PO SCH (08:05)
[2021-04-21] MEDS: heparin, porcine 5000 units/ml vial SQ SCH ×2 (08:05→19:31)
[2021-04-21 08:16] VITALS: BP 105/63
[2021-04-21] MEDS: magnesium hydroxide 30ml (MOM) UD suspension PO PRN (09:11)
[2021-04-21 12:59] VITALS: BP 114/71
[2021-04-21 19:27] VITALS: BP 110/75
[2021-04-21 23:41] VITALS: BP 123/78
[2021-04-22] MEDS: HYDROmorphone inj. 0.5 MG/0.5 ML DISP.SYRIN IV PRN ×2 (05:08→09:19)
--- NOTE | 2021-04-22 06:15 | NUR ---
Problems reprioritized. Patient report given, questions answered & plan of care reviewed with Rachel Bowers.
[2021-04-22 07:00] VITALS: BP 121/78
[2021-04-22] MEDS: pantoprazole 40mg Tablet.DR PO SCH (08:28)
[2021-04-22 08:29] VITALS: BP_SYST 121
[2021-04-22] MEDS: lisinopril 20mg tablet PO SCH (08:29)
[2021-04-22] MEDS: clopidogrel 75mg tablet PO SCH (08:29)
[2021-04-22] MEDS: metoprolol succinate 25mg (24-HOUR) SR. Tablet PO SCH (08:29)
[2021-04-22] MEDS: atorvastatin 20mg tablet PO SCH (08:30)
[2021-04-22] MEDS: heparin, porcine 5000 units/ml vial SQ SCH (08:30)
[2021-04-22] MEDS: LORazepam 2 mg/ml vial IV PRN (09:30)
== END 2021-04-22 09:35 | DRG 182 ==
LOC: ER 18:24 → ED HOLD 21:11 → PCU 3S 03-21 09:55 → SUR 3N 04-09 18:49
PROVIDERS: ADMIT Family Medicine; ATTEND Internal Medicine
PROC: 4A02XM4 Measurement of Cardiac Total Activity, External Approach (ICD-10-PCS; 2021-03-22)
PROC: 3E073KZ Introduction of Other Diagnostic Substance into Coronary Artery, Percutaneous Approach (ICD-10-PCS; 2021-03-22)
PROC: 047L3ZZ Dilation of Left Femoral Artery, Percutaneous Approach (ICD-10-PCS; principal; 2021-03-25)
PROC: B41F1ZZ Fluoroscopy of Right Lower Extremity Arteries using Low Osmolar Contrast (ICD-10-PCS; 2021-03-25)
PROC: B32T1ZZ Computerized Tomography (CT Scan) of Left Pulmonary Artery using Low Osmolar Contrast (ICD-10-PCS; 2021-04-01)
PROC: B3201ZZ Computerized Tomography (CT Scan) of Thoracic Aorta using Low Osmolar Contrast (ICD-10-PCS; 2021-04-01)
PROC: B32S1ZZ Computerized Tomography (CT Scan) of Right Pulmonary Artery using Low Osmolar Contrast (ICD-10-PCS; 2021-04-01)
PROC: BQ2R1ZZ Computerized Tomography (CT Scan) of Right Lower Extremity using Low Osmolar Contrast (ICD-10-PCS; 2021-04-02)
PROC: BW211ZZ Computerized Tomography (CT Scan) of Abdomen and Pelvis using Low Osmolar Contrast (ICD-10-PCS; 2021-04-03)
PROC: BQ2R1ZZ Computerized Tomography (CT Scan) of Right Lower Extremity using Low Osmolar Contrast (ICD-10-PCS; 2021-04-06)
PROC: 0KNN0ZZ Release Right Hip Muscle, Open Approach (ICD-10-PCS; 2021-04-08)
DX: I77.77 Dissection of artery of lower extremity (principal); T79.A21A Traumatic compartment syndrome of right lower extremity, initial encounter; R71.0 Precipitous drop in hematocrit; G62.9 Polyneuropathy, unspecified; I48.91 Unspecified atrial fibrillation; E78.5 Hyperlipidemia, unspecified; S70.11XA Contusion of right thigh, initial encounter; F10.120 Alcohol abuse with intoxication, uncomplicated; I25.5 Ischemic cardiomyopathy; I70.202 Unspecified atherosclerosis of native arteries of extremities, left leg; Z20.822 Contact with and (suspected) exposure to COVID-19; K21.9 Gastro-esophageal reflux disease without esophagitis; W03.XXXA Other fall on same level due to collision with another person, initial encounter; I25.119 Atherosclerotic heart disease of native coronary artery with unspecified angina pectoris; K59.00 Constipation, unspecified; M77.9 Enthesopathy, unspecified; F12.10 Cannabis abuse, uncomplicated; I12.9 Hypertensive chronic kidney disease with stage 1 through stage 4 chronic kidney disease, or unspecified chronic kidney disease; N18.9 Chronic kidney disease, unspecified; Z72.0 Tobacco use; Z95.1 Presence of aortocoronary bypass graft; Z79.02 Long term (current) use of antithrombotics/antiplatelets; Z95.5 Presence of coronary angioplasty implant and graft; I25.2 Old myocardial infarction; Z79.899 Other long term (current) drug therapy; Z88.6 Allergy status to analgesic agent; Z91.19 Patient's noncompliance with other medical treatment and regimen; Z88.8 Allergy status to other drugs, medicaments and biological substances; Y93.89 Activity, other specified; Y92.59 Other trade areas as the place of occurrence of the external cause; Y99.8 Other external cause status
CPT/HCPCS: 36415; 37224; 70450; 71045; 71275; 73552; 73700; 73701; 74176; 74177; 76882; 78452; 80053; 80061; 80320; 82550; 83036; 83690; 83735; 83880; 84100; 84145; 84443; 84484; 85025; 85379; 85610; 85730; 87081; 87635; 93005; 93017; 93922; 93925; 93970; 93971; 97110; 97112; 97116; 97161; 97530; 97535; 99152; 99153; 99285; A4215; A4618; A6213; A6253; A6449; A7000; A9500; C1725; C1760; C1769; C1894; G0378; J0280; J0690; J1100; J1170; J1644; J2001; J2060; J2212; J2250; J2270; J2405; J2704; J2785; J3010; J7030; J7120; Q9967